=== PATIENT | female | born 1945 | race Caucasian/White ===

== ENCOUNTER → 2023-01-17 | Outpatient (REF) | payer MEDICARE, SELFPAY ==
[2023-01-17 08:27] LABS: Hematocrit 42.3 % (37-47); Hemoglobin 13.2 g/dL (12.0-15.0); Mean Corp Hgb Conc 31.2 g/dL (32-36); Mean Corpuscular Hgb 28.7 pg (27.0-32.0); Mean Platelet Vol. 11.3 fl (6.2-12.0); Platelet Count 242 K/mm3 (150-450); RBC Distribution Width CV 14.1 % (11.6-14.6); RBC Distribution Width SD 47.7 fl (35.1-43.9); White Blood Count 7.2 K/mm3 (4.4-11.0)
[2023-01-17 08:49] LABS: ALB/GLOB Ratio 0.7 RATIO (0.9-2.4); AST(SGOT) 21 U/L (15-37); Alanine Aminotransfer ALT/SGPT 24 U/L (13-56); Albumin, Serum 2.9 g/dL (3.2-5.0); Alkaline Phosphatase 62 U/L (45-117); Anion Gap 3 (5-15); BUN 9 mg/dL (7-18); BUN/Creat Ratio 13.2 RATIO (10-20); Calcium,Total 8.7 mg/dL (8.5-10.1); Chloride 107 mmol/L (98-107); Creatinine, Serum 0.68 mg/dL (0.55-1.02); EST Glomerular Filtration Rate 90 mL/min (>60); Est Glom Filt Rate - Afr Amer 108 mL/min (>60); Globulin 3.9 g/dL (2.2-4.2); Glucose 98 mg/dL (74-106); Potassium 3.9 mmol/L (3.5-5.1); Protein, Total 6.8 g/dL (6.4-8.2); Sodium Level 138 mmol/L (136-145); Thyroid Stim Hormone (TSH) 2.89 uIU/mL (0.358-3.74)
== END | disposition home or self-care (01) ==
LOC: OLS.SANC 06:50
PROVIDERS: Visit Provider Internal Medicine
DX: I10 Essential (primary) hypertension (principal); K57.90 Diverticulosis of intestine, part unspecified, without perforation or abscess without bleeding
CPT/HCPCS: 36415; 80053; 84443; 85027

== ENCOUNTER → 2023-02-14 | Outpatient (REF) | payer MEDICARE, SELFPAY ==
[2023-02-14 09:21] LABS: Hematocrit 39.8 % (37-47); Hemoglobin 12.7 g/dL (12.0-15.0); Mean Corp Hgb Conc 31.9 g/dL (32-36); Mean Corpuscular Hgb 28.9 pg (27.0-32.0); Mean Corpuscular Volume 90.7 fL (81-99); Mean Platelet Vol. 10.9 fl (6.2-12.0); Platelet Count 222 K/mm3 (150-450); RBC Distribution Width CV 13.7 % (11.6-14.6); RBC Distribution Width SD 45.6 fl (35.1-43.9); Red Blood Count 4.39 M/mm3 (4.2-5.4); White Blood Count 7.8 K/mm3 (4.4-11.0)
[2023-02-14 09:27] LABS: Anion Gap 5 (5-15); BUN 11 mg/dL (7-18); BUN/Creat Ratio 18.8 RATIO (10-20); Calcium,Total 8.8 mg/dL (8.5-10.1); Chloride 108 mmol/L (98-107); Creatinine, Serum 0.58 mg/dL (0.55-1.02); EST Glomerular Filtration Rate 107 mL/min (>60); Est Glom Filt Rate - Afr Amer 129 mL/min (>60); Glucose 101 mg/dL (74-106); Sodium Level 142 mmol/L (136-145)
== END ==
LOC: OLS.SANC 05:00
PROVIDERS: Visit Provider Internal Medicine
DX: I10 Essential (primary) hypertension (principal); K57.90 Diverticulosis of intestine, part unspecified, without perforation or abscess without bleeding
CPT/HCPCS: 36415; 80048; 85027

== ENCOUNTER → 2023-05-17 | Outpatient (REF) | payer MEDICARE, SELFPAY ==
[2023-05-17 09:14] LABS: Anion Gap 5 (5-15); BUN 10 mg/dL (7-18); BUN/Creat Ratio 16.1 RATIO (10-20); Calcium,Total 8.6 mg/dL (8.5-10.1); Chloride 107 mmol/L (98-107); Creatinine, Serum 0.62 mg/dL (0.55-1.02); EST Glomerular Filtration Rate 100 mL/min (>60); Est Glom Filt Rate - Afr Amer 121 mL/min (>60); Glucose 107 mg/dL (74-106); Potassium 3.6 mmol/L (3.5-5.1); Sodium Level 141 mmol/L (136-145)
[2023-05-17 09:18] LABS: Hematocrit 37.7 % (37-47); Hemoglobin 12.1 g/dL (12.0-15.0); Mean Corp Hgb Conc 32.1 g/dL (32-36); Mean Corpuscular Hgb 28.7 pg (27.0-32.0); Mean Corpuscular Volume 89.5 fL (81-99); Mean Platelet Vol. 10.7 fl (6.2-12.0); Platelet Count 248 K/mm3 (150-450); RBC Distribution Width SD 45.3 fl (35.1-43.9); Red Blood Count 4.21 M/mm3 (4.2-5.4); White Blood Count 8.1 K/mm3 (4.4-11.0)
== END ==
LOC: OLS.SANC 05:00
PROVIDERS: Referring Provider Internal Medicine; Visit Provider Internal Medicine
DX: I10 Essential (primary) hypertension (principal)
CPT/HCPCS: 36415; 80048; 85027

== ENCOUNTER → 2023-08-12 | Outpatient (REF) | payer MEDICARE, MEDICAID, SELFPAY ==
[2023-08-12 08:01] LABS: Hematocrit 39.2 % (37-47); Hemoglobin 12.4 g/dL (12.0-15.0); Mean Corp Hgb Conc 31.6 g/dL (32-36); Mean Corpuscular Hgb 28.4 pg (27.0-32.0); Mean Corpuscular Volume 89.9 fL (81-99); Mean Platelet Vol. 11.2 fl (6.2-12.0); Platelet Count 234 K/mm3 (150-450); RBC Distribution Width CV 13.8 % (11.6-14.6); RBC Distribution Width SD 45.6 fl (35.1-43.9); Red Blood Count 4.36 M/mm3 (4.2-5.4); White Blood Count 8.7 K/mm3 (4.4-11.0)
[2023-08-12 08:16] LABS: Anion Gap 7 (5-15); BUN 12 mg/dL (7-18); BUN/Creat Ratio 16.8 RATIO (10-20); Calcium,Total 8.6 mg/dL (8.5-10.1); Chloride 106 mmol/L (98-107); Creatinine, Serum 0.71 mg/dL (0.55-1.02); EST Glomerular Filtration Rate 85 mL/min (>60); Est Glom Filt Rate - Afr Amer 102 mL/min (>60); Glucose 109 mg/dL (74-106); Potassium 3.9 mmol/L (3.5-5.1); Sodium Level 141 mmol/L (136-145)
== END ==
LOC: OLS.SANC 05:00
PROVIDERS: Visit Provider Internal Medicine
DX: I10 Essential (primary) hypertension (principal); Z79.899 Other long term (current) drug therapy
CPT/HCPCS: 36415; 80048; 85027

== ENCOUNTER → 2023-11-12 | Outpatient (REF) | payer MEDICARE, MEDICAID, SELFPAY ==
--- OUTSIDE RECORDS SUMMARY | 2023-11-12 05:01 | XMS RPT_ITS | CCD ---
Author Name Unknown Address [address] [place] [address] Organization [facility] Care Team Providers Care Gang Leader Name Role Phone James QUINONES, Cole Burnette Primary Care [facility] er COLE HOPKINS Attending Unavailable COLE HOPKINS Primary Care Unavailable MARIZA PAZ Admitting Unavailable SHERYL LOWE Attending Unavailable COLE HOPKINS Primary Care Unavailable KOBE DAV Admitting Unavailable LUANA ROGERS Consulting Unavailable COLE HOPKINS Primary Care Unavailable GUS LACKEY Attending Unavailable Medications Current Medications Medication Drug Class(es) Dates Sig (Normalized) Sig (Original) miconazole nitrate 0.02 mg/mg topical powder (4 sources) Azole Antifungal Start: 11-12-2022 miconazole (Micotin) 2 % powder Apply topically 2 times daily. 71 g 0 11/12/2022 Active oxybutynin chloride 5 mg oral tablet (2 sources) Cholinergic Muscarinic Antagonist take 1 tablet by mouth once daily in the morning oxybutynin (Ditropan) 5 MG tablet Take 5 mg by mouth every morning. 0 Active Completed/Discontinued Medications Medication Drug Class(es) Dates Sig (Normalized) Sig (Original) Acetaminophen (8 sources) Start: 01-07-2023 End: 01-09-2023 take 1 tablet by mouth every six hours as needed for pain and fever acetaminophen (Tylenol) tablet 650 mg Problems Active Problems Problem Classification Problem Date Documented Da te Episodic/Chronic Cardiac dysrhythmias (2 sources) Unspecified atrial fibrillation; Translations: [Unspecified atrial fibrillation (HCC)] Onset: 10-31-2022 Chronic Other connective tissue disease (2 sources) Recurrent falls ; Translations: [Repeated falls] Episodic Other gastrointestinal disorders (1 source) Diarrhea; Translations: [Diarrhea, unspecified] 12-17-2022 Episodic Other nervous system disorders (2 sources) Difficulty in walking, not elsewhere classified; Translations: [Difficulty in walking, not elsewhere classified] Onset: 10-31-2022 Chronic Past or Other Problems Problem Classification Problem Date Documented Da te Episodic/Chronic E Codes: Fall (10 sources) Fall; Translations: [Unspecified fall, initial encounter] Onset: 10-31-2022 10-31-2022 Episodic Other connective tissue disease (4 sources) Mass of soft tissue; Translations: [Other specified soft tissue disorders] Onset: 06-27-2016 07-06-2022 Episodic Other connective tissue disease (2 sources) Repeated falls; Translations: [Repeated falls] Onset: 01-07-2023 Episodic Residual codes; unclassified (2 sources) Other specified health status; Translations: [Other specified health status] Onset: 10-31-2022 Episodic Urinary tract infections (16 sources) Acute cystitis; Translations: [Acute cystitis with hematuria] Onset: 01-07-2023 Episodic Results Test Name Value Interpretation Reference Range Facil ity Vital Signs Date Time Vital Sign Value Performing Clinician Faci lity 01-08-2023 20:16-0400 Body temperature 97.9 [degF] Serafin Gillespie MD Work Phone: [facility] 01-08-2023 20:16-0400 Diastolic blood pressure 74 mm[Hg] Serafin Gillespie MD Work Phone: [facility] 01-08-2023 20:16-0400 Heart rate 84 /min Serafin Gillespie MD Work Phone: [facility] 01-08-2023 20:16-0400 Respiratory rate 12 /min Serafin Gillespie MD Work Phone: [facility] 01-08-2023 20:16-0400 SaO2% (BldA) [Mass fraction] 94 % Serafin Gillespie MD Work Phone: [facility] 01-08-2023 20:16-0400 Systolic blood pressure 146 mm[Hg] Serafin Gillespie MD Work Phone: [facility] 01-07-2023 21:02-0400 Body height 162.6 cm Serafin Gillespie MD Work Phone: [facility] 01-07-2023 21:02-0400 Body mass index (BMI) [Ratio] 38.62 kg/m2 Serafin Gillespie MD Work Phone: [facility] 01-07-2023 21:02-0400 Body weight 102.06 kg Serafin Gillespie MD Work Phone: [facility] Encounters Encounter Date Encounter Type Care Provider Facility Start: 01-07-2023 End: 01-09-2023 Evaluation and management of inpatient [facility] Start: 01-07-2023 End: 01-09-2023 Evaluation and management of inpatient Serafin Gillespie MD Work Phone: [facility] Procedures Date Procedure Procedure Detail Performing Clinician Start: 01-09-2023 SARS-CoV-2 (COVID-19 ) Ag [Presence] in Respiratory specimen by Rapid immunoassay Sheryl Lowe GRAPPLE YARDER OPERATOR - WATER POLLUTION SCIENTIST Work Phone: Start: 01-09-2023 Basic metabolic pane l calcium total Sheryl Lowe GRAPPLE YARDER OPERATOR - WATER POLLUTION SCIENTIST Work Phone: Start: 01-08-2023 Basic metabolic pane l calcium total Ernestina Diamanteaudubonshimon QUINONES Work Phone: Start: 01-07-2023 Urinalysis complete panel - Urine Serafin Gillespie MD Work Phone: Start: 01-07-2023 Urnls dip stick/tabl et reagent auto microscopy Serafin Gillespie MD Work Phone: Start: 01-07-2023 Comprehensive metabo lic panel Serafin Gillespie MD Work Phone: Start: 01-07-2023 Manual differential performed [Presence] in Blood Serafin Gillespie MD Work Phone: Start: 12-17-2022 Iadna-dna/rna gi pth gn multiplex probe tq 12-25 Cole Hopkins MD Work Phone: Plan of Treatment Date Care Activity Detail Author Start: 10-31-2032 DTaP/Tdap/Td Vaccine s (2 - Td or Tdap) DTaP/Tdap/Td Vaccines (2 - Td or Tdap) [facility] Start: 11-02-2023 Diabetes mellitus screening Diabetes Screening [facility] Start: 12-01-2012 Pneumococcal Vaccine : 65+ Years (1 - PCV) Pneumococcal Vaccine: 65+ Years (1 - PCV) [facility] Start: 12-01-1997 Zoster Vaccines (1 of 2) Zoster Vacc eleuterio (1 of 2) [facility] Start: 12-01-1965 Hepatitis C screening Hepatitis C Sc reening [facility] Start: 1959 Depression Screening Depression Scre ening [facility] Start: 06-03-1948 COVID-19 Vaccine (#1) COVID-19 Vacci ne (#1) [facility] Start: 1945 Hepatitis B Vaccines (1 of 3 - 3-dose series) Hepatitis B Vaccines (1 of 3 - 3-dose series) [facility] Start: 1945 Screening for malign ant neoplasm of colon [facility] Start: 1945 Screening for osteoporosis Bone Density Scan [facility] OUTSIDE PROCEDURE SCAN OUTSIDE P ROCEDURE SCAN Procedures Ordered: 12/17/2022 [facility] Immunizations Immunization Date Immunization Notes Care Provider Fa cility 10-31-2022 tetanus toxoid, redu stacy diphtheria toxoid, and acellular pertussis vaccine, adsorbed Serafin Gillespie MD Work Phone: [facility] NEGATED: Highlighted row has not occurred!11-01-2022 Influenza,seasonal,sout chanell Hemisphere,quad,preserv Free Serafin Gillespie MD Work Phone: [facility] Payers Date Payer Category Payer Medicare [employer] [id number] 2021-Present [address] [place] [address] Medicare O [id number] 2021 Medicare [id number] Social History Date Type Detail Facility Tobacco smoking status NHIS Ex-smoker [facility] History of tobacco use Current smoker [facility] History of tobacco use Cigarette Smoker S [facility] Start: 10-31-2022 End: 01-08-2023 Alcohol intake Current non-drinker of alcohol (finding) [facility] Start: 11-01-2022 History SDOH Alcohol Frequency 1 [facility] Start: 11-01-2022 History SDOH Alcohol Std Drinks 0 [facility] Start: 11-01-2022 History SDOH IPV Fear 2 S [facility] Start: 1945 Sex Assigned At Not on file S [facility] Start: 12-28-2022 End: 01-07-2023 Exposure to SARS-CoV-2 (event) Not sure [facility] Start: 10-31-2022 End: 01-08-2023 History of Social function [facility] Start: 10-31-2022 End: 01-08-2023 Humiliation, Afraid, Rape, and Kick questionnaire [HARK] [facility] Within the last year , have you been afraid of your partner or ex-partner? No [facility] How often to you hav e a drink containing alcohol? Never [facility] How many standard dr inks containing alcohol do you have on a typical day? Patient does not drink [facility] Clinical Notes 10-31-2022 to 01-09-2023 Care Coordination - Alyx Schmitz - 01/09/2023 11:19 AM EDTCare Coordination Alyx Schumacherhens - 01/09/2023 11:[address] [facility] - 01/09/2023 11:19 AM EDT Note Date & Type Note Facility 01-09-2023 Note Discharge Summary Gaston Richard : 1945 ADMIT DATE: 01/07/2023 DISCHARGE DATE: 01/09/2023 PRIMARY CARE PHYSICIAN: Cole Hopkins VISIT STATUS: Admission CODE STATUS: Full Code DISCHARGE DIAGNOSES: Principal Problem: UTI (urinary tract infection) Active Problems: Acute cystitis with hematuria Obesity- with likely obesity hypoventilation syndrome HOSPITAL COURSE: Gaston is a 77 y.o. female with past medical history below who presents with chief complaint listed above. She has been having generalized weakness, also slid from the chair, complains of lower extremity edema , she also has urinary symptoms of burning urination chronic urinary incontinence , associated with lower abdominal pressure, came into the ED for evaluation. Denies chest pain, sob, abdominal pain, nausea, vomiting, diarrhea, constipation, fevers, or chills. Work-up in the ED showed normal white count, urinalysis positive for leuk esterase and nitrite along with loaded bacteria, given ceftriaxone and admitted. Patient improved and was seen by PT/OT who recommend inpatient rehab. Patient and her daughter chose a place . Patient will be discharged today to skilled facility. SIGNIFICANT DIAGNOSTIC STUDIES: FER CONSULTANTS: FER RECOMMENDED NEXT STEPS: Patient to be discharged to skilled facility DISCHARGE MEDICATIONS: Medication List CHANGE how you take these medications amLODIPine 10 MG tablet Commonly known as: Norvasc Take 1 tablet (10 mg) by mouth daily. Do not start before November 13, 2022. What changed: when to take this CONTINUE taking these medications escitalopram 20 MG tablet Commonly known as: Lexapro miconazole 2 % powder Commonly known as: Micotin Apply topically 2 times daily. oxybutynin 5 MG tablet Commonly known as: Ditropan Tylenol 8 Hour Arthritis Pain 650 MG ER tablet Generic drug: acetaminophen DIET: Adult diet Regular; Low Sodium (2 gm) ACTIVITY: No restriction. COMPLEXITY OF FOLLOW UP: [x] Moderate Complexity: follow up within 7-14 calendar days (42240) [] Severe Complexity: follow up within 7 calendar days (92234) FOLLOW UP TESTING, PENDING RESULTS OR REFERRALS AT TRANSITIONAL CARE VISIT: [] Yes [x] No PENDING STUDIES: NA DISPOSITION: Skilled Facility FACILITY/HOME CARE AGENCY NAME: [facility] Follow up with No follow-up provider specified. on INSTRUCTIONS TO MA/SW: Please call patient on day after discharge (must document patient contacted within 2 business days of discharge). FOLLOW UP QUESTIONS FOR MA/SW: 1. Did you get medications filled and taking them as instructed from discharge? 2. Are you following your discharge instructions from your hospital stay? 3. Please confirm patient is scheduled for a follow up appointment within the above time frame. DISCHARGE TIME: > 30 minutes SIGNED: SHERYL MYNORMARA Tsang CNP 01/09/2023, 12:15 PM [facility] 01-09-2023 Note Hospitalist Progress Note 01/09/2023 [phone]: Please page me ([phone]) for patient care issues. [phone]: Please page [facility] night Hospitalist for any issues. Subjective: Admit Date: 01/07/2023 PCP: Cole Hopkins MD Room#: B1-155/B1-155 A Interval History: No overnight issues. She states she feels much better today. Patient is aware of the plan to be discharged to SNF. Denies chest pain, sob, abdominal pain, nausea, vomiting, diarrhea, constipation, fevers, or chills. Adult diet Regular; Low Sodium (2 gm) @[id number]@ 24HR INTAKE/OUTPUT: Intake/Output Summary (Last 24 hours) at 01/09/2023 0945 Last data filed at 01/09/2023 0615 Gross per 24 hour Intake -- Output 2900 ml Net -2900 ml Past Medical History: Past Medical History: Diagnosis Date Diverticulitis GERD (gastroesophageal reflux disease) Sleep apnea LABS: CBC: Recent Labs 01/07/238 01/08/23 005 WBC 10.1 8.8 RBC 4.54 4.05 HGB 13.3 11.6* HCT 40.2 35.4 MCV 88.5 87.3 RDW 15.4* 15.5* PLT 251 222 BMP: Recent Labs 01/07/238 01/08/23 0059 NA 138 136 K 3.6 3.5 CL 105 107 CO2 31* 26 BUN 17 16 CREATININE 0.62 0.72 GLUCOSE 152* 108* CALCIUM 9.0 8.0* ANIONGAP 3 3 LIVER PROFILE: Recent Labs 01/07/23757 AST 30 ALT 20 BILITOT 0.5 ALKPHOS 95 PROT 7.8 PT/INR: No results for input(s): PROTIME, INR in the last 72 hours. CARDIAC ENZYMES: No results for input(s): TROPONINI in the last 72 hours. Procalcitonin: No results found for: PROCAL COVID-19 PCR: No results for input(s): COVID19 in the last 72 hours. Objective: Vitals: BP (!) 146/74 (BP Location: Left arm, Patient Position: Lying) Pulse 84 Temp 36.6 ?C (97.9 ?F) (Temporal) Resp 12 Ht 5' 4 (1.626 m) Wt 225 lb (102 kg) SpO2 94% BMI 38.62 kg/m? Pulse Ox: SpO2 Av % Min: 94 % Max: 94 % Supplemental O2: General appearance: pleasant elderly female lying in bed in NAD HEENT: Normal cephalic, atraumatic without obvious deformity. Pupils equal, round, and reactive to light. Extra ocular muscles intact. Conjunctivae/corneas clear. Neck: Supple, with full range of motion. Trachea midline. No lymphadenopathy. Respiratory: Normal respiratory effort at rest . Clear to auscultation, bilaterally without Rales/Wheezes/Rhonchi. Cardiovascular: Regular rate and rhythm with normal S1/S2 without murmurs, rubs or gallops. Abdomen: Soft, non-tender, non-distended with normal bowel sounds. No rebound or guarding. Musculoskeletal: No clubbing, cyanosis or edema bilaterally. Full range of motion without deformity, +2 peripheral pulses in all extremities. Skin: Skin color, texture, turgor normal. No rashes or lesions. Neurologic: Neurovascularly intact without any focal sensory/motor deficits. Cranial nerves: II-XII intact, grossly non-focal. Medications: sodium chloride, 75 mL/hr, Last Rate: 75 mL/hr (01/08/232) amLODIPine, 10 mg, Oral, Daily cefTRIAXone, 1 g, IntraVENous, q24h enoxaparin, 40 mg, SubCUTAneous, Daily escitalopram, 20 mg, Oral, Daily melatonin, 3 mg, Oral, Nightly mirabegron ER, 25 mg, Oral, Daily phenazopyridine, 100 mg, Oral, TID WC Assessment General weakness- PT/OT rec inpatient rehab, patient has auth to go today UTI- culture pending, Rocephin discontinued per abx stewardship KIARA- pap therapy at [facility] - continue PPI Prediabetic - A1c 11/02/22 was 6.0 HTN- sub optimal control , she may need another agent, rec low sodium diet Obesity - BMI>38 Medical Decision Making Discussed patient with infectious disease and she can be off abx after today's dose. Patient improved, primary complaint was weakness, she will be discharged to [facility] today -am labs, replace lytes prn -increase activity -DVT prophylaxis: [] Lovenox [] Heparin [] SCDs [x] Encourage ambulation [] Already on Anticoagulation Anticipated Discharge - Date - 01/09 - Location - Skilled Facility - Pending the following - stable for discharge today Total time spent (which include face to face and non face to face encounters) : 35 minutes Ordering treatments and interventions, ordering and review of laboratory studies, ordering and review of radiographic studies, pulse oximetry, re-evaluation of patient's condition, review of old charts, development of treatment plan with patient or surrogate, discussions with consultants, evaluation of patient's response to treatment and examination of patient Toxic drug monitoring/narrow therapeutic index drug monitoring : # Drug name : # Route administered : # Method of monitoring : Extended Emergency Contact Information Primary Emergency Contact: Kelsey Benitez Mobile Relation: Other Preferred language: [place] [employer] Treating Unit Operator needed? No SHERYL LOWE APRN - WATER POLLUTION SCIENTIST Division of Hospitalist Medicine Inpatient Medical Services/[facility] PAGER: [employer] [facility] 01-09-2023 Note Formatting of this n ote might be different from the original. Discharge med list and MAR information transmitted to [facility] via [facility] per [facility] request. [facility] 01-09-2023 Note Formatting of this n ote might be different from the original. Discharge med list and MAR information transmitted to [facility] via [facility] per [facility] request. [facility] 01-09-2023 Miscellaneous Notes Discharge med list and MAR information transmitted to [facility] via [facility] per [facility] request. Patient Choice Patient Name: GASTON RICHARD Date of : 1945 All Providers Sent Referral Name: [facility] [place] Phone: [phone] Address: [address] [place] [address] Name: [facility] Phone: [phone] Address: [address] [place] [address] Name: [facility] Phone: [phone] Address: [address] [place] [address] Name: Luis Lam Phone: [phone] Address: [address] [place] [address] Spoke with ROSA Fermin NP for discharge. SW arranged transportation, call placed to daughter Kelsey CANTU. OFFICE CHAIR ASSEMBLER tasked to send dc paperwork to [facility]. Facility updated in [facility]. TCC to assist and follow as needed. Notified patient has insurance auth to admit to [facility] by TCC. Transportation arranged through [facility] by cot set for 2 pm. Notified RN and TCC of this via [employer] secure chat. Social work remains available if any other needs or concerns arise. Insurance auth obtained for [facility], Epic chat sent to Sheryl Lowe Np. Confirmed with daughter and NAZ, [facility] is [facility]. [facility] initiated insurance auth 01/08/23. Will wait for auth to be obtained. Pt remains on IV rocephin, TCC to assist and follow as needed. Problem: Pain - Adult Goal: Verbalizes/displays adequate comfort level or baseline comfort level Outcome: Progressing Problem: Safety - Adult Goal: Free from fall injury Outcome: Progressing The patient is Moderately Stable - Low risk of patient condition declining or worsening The patient's goals for the shift include absent of fall The clinical goals for the shift include absent of fall Over the shift, the patient did not make progress toward the following goals. Barriers to progression include none, goals met. Recommendations to address these barriers include none. [facility] able to accept, requested they initiate insurance auth. Sent [facility] notes [facility] per TCC request. Await review and response regarding ability to accept. TCC notified. Spoke with pt at bedside, updated pt I am waiting for a return call from her daughter. Pt states the [facility] is the [facility]. Message sent to [facility] to confirm they can accept. OFFICE CHAIR ASSEMBLER tasked to send therapy notes. TCC to assist and follow as needed. Care Managment Initial Assessment Date: 01/08/2023 Patient Name: Gaston Richard : 1945 Patient Information Source of Information: Patient Cognition/Language: WFL - Within Functional Limits Permission given to speak with patient financial services sales representative/caregiver as indicated: Yes Confirmation of Payer with patient/family: Yes Payer Name: [place]: No Confirmation of Primary Care Physician: Confirmed PCP Name: James Seen in last 2 years?: Yes Primary Caregiver: Other (Comment) (family) If assistance needed, confirmed caregiver ready, willing and able to care for patient at discharge: Yes Confirmed with: per pt, daughter Kelsey Ervin Merrill Living Arrangements Current Residence: House Number of Floors 2 Number of Entry Steps: (lift) Bed/Bath Levels: Both first floor (stays on main floor) Facility: Facility Name: Plan to Return: Lives with: Children, Extended family members (grandchildren) Support Systems: Children, Family members Activities of Daily Living Ambulation: Assistance (walker and wheelchair) Bathing/Dressing: Assistance (aide provides bath on fridays) Elimination/Continence/Toileting: Assistance (incontinent) Feeding: Independent Who Assists with Activities of Daily Living: Instrumental Activities of Daily Living Prescription Coverage: Yes Pharmacy Used: [facility] Medication Management: Prescription pick-up Who assists with medication securing and setup?: daughter Kelsey Transportation/Shopping: Assistance Provider Transportation/Shopping Assistance Provider Name: Kelsey Transportation Mode: Car Needs Assistance with Transportation at Discharge: No Meal Preparation: Assistance Provider Meal Prep Assistance Provider Name: Kelsey Laundry/Cleaning: Assistance Provider Laundry/Cleaning Assistance Provider Name: Kelsey Finances/Bill Paying: Assistance Provider Finances/Bill Payer Assistance Provider Name: Kelsey Communication: Independent Types of Care Services/Equipment Utilized Care Services: Skilled Home Health Services Care Services Provider Name: [facility] Dialysis Type: Durable Medical Equipment: Walker, Wheelchair (standard or power), Shower Seat Patient's Goal/Discharge Plan Patient expects to be discharged to: SNF Discharge Planning Actions: Continue to follow, Assisted Facility referral indicated Kathryn of choice: Kathryn of choice discussed, Choice list provided Patient's Choice Rights and [employer] and Collaborative Relationships Disclosed as Indicated for Post-Acute Care: Yes Interdisciplinary Team Engagement: PT/OT, Home Health Care Social Work Referral for: Additional Information: 77 yo female admitted from fall at home, noted to have a UTI. On IV rocephin and IVF. PT OT ordered. Met with pt at bedside, introduced self and explained role of tcc. Pt has insurance with RX coverage, active with PCP. Pt lives at home with daughter, son in law and their children. Uses a walker and wheelchair, active with [facility]. Referrals were placed yesterday for SNF in the ED. Pt requested I call Kelsey to ask which is FOC, call placed to Kelsey - No answer, left VM. Awaiting PT OT recs. TCC to assist and follow as needed. Evelyn Willson RN S/W, follow up [facility] and [facility], per patient and family wishes. Await facility responses. S/W, ED patient S/W called to ED to speak with patient and family. Family voiced the need for a facility for the patient. Chart reviewed, patient in from home after another fall ( has had several) Patient had been home from [facility] for about one month. Family concerned as they all work and cannot be with the patient 24hrs a day. The patient voiced she does not wish to return to [facility]. The family is working with a rep from [facility], they do have Medicaid paperwork at home to complete. I encouraged them to do so. From here, we will need PT/OT evals to see if we can get patient [place] Medicare to cover SNF time. I did provide the patient with a List of [employer] [facility] SNF ( [facility] [employer] [facility] Patient and family will review and provide choice. documented in this encounter [facility] 01-09-2023 Note Formatting of this n ote might be different from the original. Patient Choice Patient Name: GASTON RICHARD Date of : 1945 All Providers Sent Referral Name: [facility] Phone: [phone] Address: [address] [place] [address] Name: [employer] Phone: [phone] Address: [address] [place] [address] Name: [facility] Phone: [phone] Address: [address] [place] [address] [facility]: [phone] Address: [address] [place] [address] [facility] 01-09-2023 Note Formatting of this n ote might be different from the original. Patient Choice Patient Name: GASTON RICHARD Date of : 1945 All Providers Sent Referral Name: [facility] Phone: [phone] Address: [address] [address] Name: [employer] Phone: [phone] Address: [address] [place] [address] Name: [facility] Phone: [phone] Address: [address] [place] [address] Name: [facility] Phone: [phone] Address: [facility] [place] [address] [facility] 01-09-2023 Note Formatting of this n ote might be different from the original. Spoke with ROSA Fermin NP for discharge. SW arranged transportation, call placed to daughter Kelsey - left . OFFICE CHAIR ASSEMBLER tasked to send dc paperwork to [facility]. Facility updated in careport. TCC to assist and follow as needed. [facility] 01-09-2023 Note Formatting of this n ote might be different from the original. Spoke with ROSA Fermin NP for discharge. SW arranged transportation, call placed to daughter Kelsey - left . OFFICE CHAIR ASSEMBLER tasked to send dc paperwork to [facility]. Facility updated in careport. TCC to assist and follow as needed. [facility] 01-09-2023 Note Formatting of this n ote might be different from the original. Notified patient has insurance auth to admit to [facility] by TCC. Transportation arranged through [facility] by cot set for 2 pm. Notified RN and TCC of this via [employer] chat. Social work remains available if any other needs or concerns arise. [facility] 01-09-2023 Note Formatting of this n ote might be different from the original. Notified patient has insurance auth to admit to [facility] by TCC. Transportation arranged through [facility] by cot set for 2 pm. Notified RN and TCC of this via [employer] chat. Social work remains available if any other needs or concerns arise. [facility] 01-09-2023 Hospital Discharg e instructions Sheeba Rodriguez RN - 01/09/2023 11:06 AM EDT Continuity of Care Form Patient Name: Gaston Richard : 1945 Admit date: 01/07/2023 Discharge date: 01/09/2023 Code Status Order: Full Code Advance Directives: N Admitting Physician: Mariza Paz MD PCP: Cole Hopkins MD Discharging Nurse: Sheeba Discharging Hospital Unit/Room#: B1-155/B1-155 A Discharging Unit Emergency Contact: Extended Emergency Contact Information Primary Emergency Contact: Kelsey Benitez Mobile Relation: Other Preferred language: [place] [employer] Treating Unit Operator needed? No Past Surgical History: Past Surgical History: Procedure Laterality Date CHOLECYSTECTOMY CYST REMOVAL HYSTERECTOMY TONSILLECTOMY (HISTORICAL) Immunization History: Immunization History Administered Date(s) Administered Tdap 10/31/2022 Active Problems: Medical Problems Problem List * (Principal) UTI (urinary tract infection) Fall, initial encounter Fall at home, initial encounter Acute cystitis with hematuria Soft tissue mass Isolation/Infection: No active isolations No active infections Nurse Assessment: Last Vital Signs: BP (!) 146/74 (BP Location: Left arm, Patient Position: Lying) Pulse 84 Temp 36.6 C (97.9 F) (Temporal) Resp 12 Ht 1.626 m (5' 4 ) Wt 102 kg (225 lb) SpO2 94% BMI 38.62 kg/m Last documented pain score (0-10 scale): Last Weight: Wt Readings from Last 1 Encounters: 01/07/23 102 kg (225 lb) Mental Status: KYAW Patient Mental Status: oriented and alert IV Access: KYAW IV Access: None Nursing Mobility/ADLs: Walking Minimal assistance Transfer Total assistance Bathing Total assistance Dressing Total assistance Toileting Total assistance Feeding Independent Jewel Staker Minimal assistance Med Delivery yes Wound Care Documentation and Therapy: Elimination: Continence: Bowel: no Bladder: no Urinary Catheter: None Colostomy/Ileostomy/Ileal Conduit: None Date of Last BM: 01/09/2023 Intake/Output Summary (Last 24 hours) at 01/09/2023 1106 Last data filed at 01/09/2023 0615 Gross per 24 hour Intake -- Output 2900 ml Net -2900 ml I/O last 3 completed shifts: In: 200 (2 mL/kg) [P.O.:200] Out: 3500 (34.3 mL/kg) [Urine:3500 (1 mL/kg/hr)] Weight: 102.1 kg Safety Concerns: history of falls (last 30 days) Impairments/Disabilities: none Nutrition Therapy: Current Nutrition Therapy: Oral diet: low sodium (2gm) Routes of Feeding: oral Liquids: no restrictions Daily Fluid Restriction: no Last Modified Barium Swallow with Video (Video Swallowing Test): not done Treatments at the Time of Hospital Discharge: Respiratory Treatments: n/a Oxygen Therapy: is not on home oxygen therapy. 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 RN SIGNATURE: MANAGEMENT/SOCIAL WORK SECTION Inpatient Status Date: 01/07/23 Readmission Risk Assessment Score: @[email or web address]@ Discharging to Facility/ Agency Name: [facility] Address: [address] [place], [place] [id number] Hours: Open 24 hours Dialysis Facility (if applicable) Name: Address: Dialysis Schedule: Phone: Fax: Customer Support Consultant/Wrecking Mechanic signature: ICIAN SECTION Prognosis: good Condition at Discharge: stable Rehab Potential (if transferring to Rehab): good Recommended Labs or Other Treatments After Discharge: NA Physician Certification: I certify the above information and transfer of Gaston Richard is necessary for the continuing treatment of the diagnosis listed and that she requires long term facility for less than 30 days. Update Admission H&P: No change in H&P PHYSICIAN SIGNATURE: documented in this encounter [facility] 01-09-2023 Note Formatting of this n ote might be different from the original. Insurance auth obtained for [facility] [employer] chat sent to [facility]yl [facility]. [facility] 01-09-2023 Note Formatting of this n ote might be different from the original. Insurance auth obtained for [facility] [place] [employer] chat sent to Sheryl [facility]. [facility] 01-09-2023 History of Presen t illness Narrative Nutrition rescreen completed. Patient assigned a level 1. Images from the original note were not included. Hospitalist Progress Note 01/09/2023 [phone]: Please page me ([phone]) for patient care issues. [phone]: Please page [facility] night Hospitalist for any issues. Subjective: Admit Date: 01/07/2023 PCP: Cole Hopkins MD Room#: B1-155/B1-155 A Interval History: No overnight issues. She states she feels much better today. Patient is aware of the plan to be discharged to SNF. Denies chest pain, sob, abdominal pain, nausea, vomiting, diarrhea, constipation, fevers, or chills. Adult diet Regular; Low Sodium (2 gm) @[id number]@ 24HR INTAKE/OUTPUT: Intake/Output Summary (Last 24 hours) at 01/09/2023 0945 Last data filed at 01/09/2023 0615 Gross per 24 hour Intake -- Output 2900 ml Net -2900 ml Past Medical History: Past Medical History: Diagnosis Date Diverticulitis GERD (gastroesophageal reflux disease) Sleep apnea LABS: CBC: Recent Labs 01/07/238 01/08/2358 WBC 10.1 8.8 RBC 4.54 4.05 HGB 13.3 11.6* HCT 40.2 35.4 MCV 88.5 87.3 RDW 15.4* 15.5* PLT 251 222 BMP: Recent Labs 01/07/2375701/08/2358 NA 138 136 K 3.6 3.5 CL 105 107 CO2 31* 26 BUN 17 16 CREATININE 0.62 0.72 GLUCOSE 152* 108* CALCIUM 9.0 8.0* ANIONGAP 3 3 LIVER PROFILE: Recent Labs 01/07/23757 AST 30 ALT 20 BILITOT 0.5 ALKPHOS 95 PROT 7.8 PT/INR: No results for input(s): PROTIME, INR in the last 72 hours. CARDIAC ENZYMES: No results for input(s): TROPONINI in the last 72 hours. Procalcitonin: No results found for: PROCAL COVID-19 PCR: No results for input(s): COVID19 in the last 72 hours. Objective: Vitals: BP (!) 146/74 (BP Location: Left arm, Patient Position: Lying) Pulse 84 Temp 36.6 C (97.9 F) (Temporal) Resp 12 Ht 5' 4 (1.626 m) Wt 225 lb (102 kg) SpO2 94% BMI 38.62 kg/m Pulse Ox: SpO2 Av % Min: 94 % Max: 94 % Supplemental O2: General appearance: pleasant elderly female lying in bed in [facility] HEENT: Normal cephalic, atraumatic without obvious deformity. Pupils equal, round, and reactive to light. Extra ocular muscles intact. Conjunctivae/corneas clear. Neck: Supple, with full range of motion. Trachea midline. No lymphadenopathy. Respiratory: Normal respiratory effort at rest . Clear to auscultation, bilaterally without Rales/Wheezes/Rhonchi. Cardiovascular: Regular rate and rhythm with normal S1/S2 without murmurs, rubs or gallops. Abdomen: Soft, non-tender, non-distended with normal bowel sounds. No rebound or guarding. Musculoskeletal: No clubbing, cyanosis or edema bilaterally. Full range of motion without deformity, +2 peripheral pulses in all extremities. Skin: Skin color, texture, turgor normal. No rashes or lesions. Neurologic: Neurovascularly intact without any focal sensory/motor deficits. Cranial nerves: II-XII intact, grossly non-focal. Medications: sodium chloride, 75 mL/hr, Last Rate: 75 mL/hr (01/08/232101) amLODIPine, 10 mg, Oral, Daily cefTRIAXone, 1 g, IntraVENous, q24h enoxaparin, 40 mg, SubCUTAneous, Daily escitalopram, 20 mg, Oral, Daily melatonin, 3 mg, Oral, Nightly mirabegron ER, 25 mg, Oral, Daily phenazopyridine, 100 mg, Oral, TID WC Assessment General weakness- PT/OT rec inpatient rehab, patient has auth to go today UTI- culture pending, Rocephin discontinued per abx stewardship KIARA- pap therapy at [facility]ER[facility] - continue PPI Prediabetic - A1c 11/02/22 was 6.0 HTN- sub optimal control , she may need another agent, rec low sodium diet Obesity - BMI>38 Medical Decision Making Discussed patient with infectious disease and she can be off abx after today's dose. Patient improved, primary complaint was weakness, she will be discharged to SNF today -am labs, replace lytes prn -increase activity -DVT prophylaxis: [] Lovenox [] Heparin [] SCDs [x] Encourage ambulation [] Already on Anticoagulation Anticipated Discharge - Date - 01/09 - Location - Skilled Facility - Pending the following - stable for discharge today Total time spent (which include face to face and non face to face encounters) : 35 minutes Ordering treatments and interventions, ordering and review of laboratory studies, ordering and review of radiographic studies, pulse oximetry, re-evaluation of patient's condition, review of old charts, development of treatment plan with patient or surrogate, discussions with consultants, evaluation of patient's response to treatment and examination of patient Toxic drug monitoring/narrow therapeutic index drug monitoring : # Drug name : # Route administered : # Method of monitoring : Extended Emergency Contact Information Primary Emergency Contact: Kelsey Benitez Mobile Relation: Other Preferred language: [place] [employer] Treating Unit Operator needed? No MARA ADAMS CNP Division of Hospitalist Medicine Inpatient Medical Services/[facility] PAGER: Edward chat Occupational Therapy Facility/Department: [address] Occupational Therapy Initial Evaluation NAME: Gaston Richard : 1945 Date of Service: 01/08/2023 Discharge Recommendations: Subacute/Assisted Facility OT Equipment Recommendations Equipment Needed: No (TBD at next level of care) Assessment REQUIRES OT FOLLOW-UP: Yes Performance deficits / Impairments: Decreased functional mobility , Decreased ADL status, Decreased strength, Decreased safe awareness, Decreased endurance, Decreased balance, Decreased posture Assessment: Pt admitting 01/07 with leg swelling and fall, found to have UTI. Pt was previously requiring assist with ADLs and completed functional mobility with fww vs w/c. Pt is currently SBA-max A with ADLs and mod A with transfers. Pt is at increased risk for falls and would benefit from skilled OT services to maximize safety and independence with ADLs and functional mobility. Rec SNF. Prognosis: Fair Decision Making: Medium Complexity History: Pt admitting 01/07 with leg swelling and fall, found to have UTI. Exam: AM-PAC Assistance / Modification: mod A Activity Tolerance Activity Tolerance: Patient limited by fatigue Patient Diagnosis(es): The primary encounter diagnosis was Acute cystitis with hematuria. A diagnosis of Frequent falls was also pertinent to this visit. has a past medical history of Diverticulitis, GERD (gastroesophageal reflux disease), and Sleep apnea. has a past surgical history that includes Hysterectomy; Cyst Removal; Cholecystectomy; and Tonsillectomy. Restrictions Restrictions/Precautions Restrictions/Precautions: General Precautions, Fall Risk Required Braces or Orthoses?: No Vision/Hearing Vision: Within Functional Limits Hearing: Functional/adequate for paticipation in therapy Cognition/Orientation Overall Cognitive Status: WFL Overall Orientation Status: Within Functional Limits Subjective General Chart Reviewed: Yes Patient Assessed for Rehabilitation Services: Yes Family / Caregiver Present: No Subjective Subjective: Pt supine in bed at arrival. Pleasant and agreeable. General Comments Comments: Per RN, pt ok to see. Patient Stated Goal: To get stronger to complete self care tasks more independently Pain Assessment Pain Assessment: No/denies pain Social/Functional History Social/Functional History Lives With: Daughter (NAZ) Type of Home: House Home Layout: Multi-level, Able to Live on Main level with bedroom/bathroom Home Access: Ramped entrance Bathroom Shower/Tub: Tub/Shower unit Bathroom Toilet: Standard Bathroom Equipment: Shower chair, Grab bars in shower Bathroom Accessibility: Walker accessible, Wheelchair accessible Home Equipment: Rolling walker, Wheelchair-manual Receives Help From: Family ADL Assistance: Needs assistance Homemaking Assistance: Needs assistance Ambulation Assistance: Independent With device?: Yes Device: rolling walker Transfer Assistance: Independent Active Supply Chain Intern: No Additional Comments: ambulate FWW vs w/c Objective Gross Assessment: Yes AROM: Generally decreased, functional PROM: Generally decreased, functional Strength: Generally decreased, functional (grossly 4/5) Coordination: Generally decreased, functional Tone: Normal Sensation: Intact (denies numbness and tingling) Observation/Palpation Posture: Fair Observation: no lines/tubes/drains Balance Sitting Balance: Stand by assistance Standing Balance: Moderate assistance Standing Balance Time: ~1 minute total Activity: clothing mgmt, static standing Comment: Pt standing at [facility] with varied min-mod A for standing balance with posterior lean. Pt with increased reliance of BUE support on walker. Functional Mobility Functional Mobility Comments: No true ambulation completed Toilet Transfers Toilet - Technique: Stand step Equipment Used: Extra wide bedside commode Toilet Transfer: Moderate assistance Toilet Transfers Comments: Assist for elevation, balance, controlled descent, and weight shifting, with VCs for safety and sequencing. Pt with general unsteadiness throughout and posterior lean. ADL Feeding: Independent Grooming: Stand by assistance UE Bathing: Stand by assistance LE Bathing: Maximum assistance UE Dressing: Stand by assistance LE Dressing: Maximum assistance Toileting: Maximum assistance Additional Comments: Pt previously required assist with ADLs. Pt is currently SBA with UB ADLs, max A with LB ADLs, and max A with toileting at [facility]. Pt required total assist to don bilateral socks. Pt required assist to thread BLE into briefs. Pt able to partially manage briefs up anteriorly, however requried assist to complete all other aspects. Pt attempting toileting at [facility], however unable to void. Bed mobility Supine to Sit: Maximum assistance Sit to Supine: Moderate assistance Scooting: Maximal assistance Comment: HOB elevated and use of bed rails. Pt requried assist with trunk elevation and BLE mgmt towards EOB with VCs for sequencing. Pt required use of pull pad to scoot towards EOB. Pt denies dizziness with all positional changes. Pt required assist with BLE mgmt to supine. Transfers Sit to stand: Moderate assistance Stand to sit: Moderate assistance Transfer Comments: Pt completing transfer from EOB to fww with asssit for balance, elevation, and controlled descent with VCs for safe hand placement. No true LOB noted. Increased time required to complete. Plan Times per Week: 8 visits Current Treatment Recommendations: Strengthening, Balance Training, Functional Mobility Training, Endurance Training, Pain Management, Safety Education & Training, Patient/Caregiver Education & Training, Equipment Evaluation, Education, & procurement, Self-Care / ADL Plan Comment: POC and goals established in collaboration with the pt. Safety Safety Devices in place: Yes Type of devices: All fall risk precautions in place, Call light within reach, Patient at risk for falls, Left in bed, No alarms engaged upon entry into room, Nurse notified Restraints Initially in place: No AM-PAC Score AM-PAC Inpatient Daily Activity Raw Score: 16 ADL Inpatient CMS G-Code Modifier: CK Goals Encounter Problems Encounter Problems (Active) Balance Patient will tolerate standing with SBA for 3 minutes to allow for increased participation in functional activities Start: 01/08/23 Expected End: 01/18/23 Dressing Upper Extremities Patient will complete upper body dressing mod I Start: 01/08/23 Expected End: 01/18/23 Dressings Lower Extremities Patient will dress lower body with min A Start: 01/08/23 Expected End: 01/18/23 Mobility Patient will demonstrate functional mobility with CGA Start: 01/08/23 Expected End: 01/18/23 Toileting Patient will complete toileting tasks at bedside commode with CGA. Start: 01/08/23 Expected End: 01/18/23 Transfers Patient will complete functional transfer with rolling walker with CGA in order to prepare for ambulation. Start: 01/08/23 Expected End: 01/18/23 Education Education Given To: Patient Education Provided: OT Role, Plan of Care, ADL Adaptive Strategies, Transfer Training, Fall Prevention Strategies, Equipment Education Method: Demonstration, Verbal, Teach Back Barriers to Learning: None Education Outcome: Verbalized understanding, Demonstrated understanding, Continued education needed Therapy Time Individual Co-treatment Time In 1021 Time Out 1045 Minutes 24 Timed Code Treatment Minutes: 10 Minutes (1 ADL) POC supervision transferred to rehab service department occupational therapist. Damaris El OT Physical Therapy Facility/Department: [facility] Physical Therapy Initial Evaluation NAME: Gaston Richard : 1945 Date of Service: 01/08/2023 Discharge Recommendations: Subacute/Assisted Facility PT Equipment Recommendations Other: TND at d/c location Assessment Requires PT Follow-Up: Yes Assessment: Pt presents with noted deficits after admission 01/07 with UTI, fall from recliner, leg swelling. At baseline she is IND with FWW vs w/c, assist for ADLs. She demo bed mobility mod A, transfer to FWW max x1 and unable to ambulate. Pt limited by fatigue, weakness. She is at increased falls risk and unsafe to return home this date, rec SNF Performance Deficits/Impairments: Decreased functional mobility , Decreased safe awareness, Decreased endurance, Decreased balance, Decreased strength Decision Making: Medium Complexity History: UTI Exam: [facility] Clinical Presentation: Pt admitted 01/07 with UTI, swelling, fall from recliner. She has PMH as indicated which contribute to her clinical presentation. She has multiple deficits addressed by PT incluing mobility, strength, endurance, balance, rec SNF. Pt moderate decison making complexity Barriers to Learning: None Barriers to Learning: None Activity Tolerance Activity Tolerance: Patient limited by fatigue, Patient limited by endurance Patient Diagnosis(es): The primary encounter diagnosis was Acute cystitis with hematuria. A diagnosis of Frequent falls was also pertinent to this visit. has a past medical history of Diverticulitis, GERD (gastroesophageal reflux disease), and Sleep apnea. has a past surgical history that includes Hysterectomy; Cyst Removal; Cholecystectomy; and Tonsillectomy. Restrictions Restrictions/Precautions Restrictions/Precautions: General Precautions, Fall Risk Required Braces or Orthoses?: No Vision/Hearing Vision: Within Functional Limits Hearing: Functional/adequate for paticipation in therapy Cognition/Orientation Overall Cognitive Status: WFL Overall Orientation Status: Within Functional Limits Subjective General Chart Reviewed: Yes Patient Assessed for Rehabilitation Services: Yes Additional Pertinent Hx: UTI Family / Caregiver Present: No Follows Commands: Within Functional Limits General Comment Comments: Per RN pt okay for therapy Subjective Subjective: Pt pleasant andaagree to PT Patient Stated Goal: None stated Pain Assessment Pain Assessment: No/denies pain Social/Functional History Social/Functional History Lives With: Daughter (NAZ) Type of Home: House Home Layout: Multi-level, Able to Live on Main level with bedroom/bathroom Home Access: Ramped entrance Bathroom Shower/Tub: Tub/Shower unit Bathroom Toilet: Standard Bathroom Equipment: Shower chair, Grab bars in shower Bathroom Accessibility: Walker accessible, Wheelchair accessible Home Equipment: Rolling walker, Wheelchair-manual Receives Help From: Family ADL Assistance: Needs assistance Homemaking Assistance: Needs assistance Ambulation Assistance: Independent With device?: Yes Device: rolling walker Transfer Assistance: Independent Additional Comments: ambulate FWW vs w/c Objective Observation/Palpation Posture: Fair Observation: no lines/tubes/drains Gross Assessment Gross Assessment: Yes AROM: Generally decreased, functional Strength: Generally decreased, functional Tone: Normal Sensation: Intact Gross Assessment: Yes AROM: Generally decreased, functional Strength: Generally decreased, functional Tone: Normal Sensation: Intact Bed mobility Supine to Sit: Moderate assistance Sit to Supine: Moderate assistance Scooting: Moderate assistance Comment: Pt denies dizziness. She demo supine to sit with mod A to manage BLE and elevate trunk. She sits EOB SBA, require mod A to scoot to EOB. She return to supine with mod A to manage BLE. Transfers Sit to Stand: Maximum Assistance Stand to sit: Maximum Assistance Comment: Pt complete functional transfer to FWW with max x1. Therapist cues pt for hand placement. She demo no LOB but require assiss to correct retro lean, demo decreased eccentric contorl to sit. Therapist cues pt for upright trunk and anterior WS. Pt unable to ambulate, unable to clear BLE Ambulation Ambulation: No Balance Posture: Fair Sitting - Static: Good, - Sitting - Dynamic: Fair, + Standing - Static: Fair, - Plan # of visits: 5 visits Current Treatment Recommendations: Strengthening, Balance Training, Functional Mobility Training, Transfer Training, Endurance Training, Equipment Evaluation, Education, & procurement, Patient/Caregiver Education & Training, Safety Education & Training, Gait Training, Pain Management, Home Exercise Program, Positioning, Wheelchair Mobility Training Plan Comment: goals and treatment plan established in collaboration with pt Safety Safety Devices Safety Devices in Place: Yes Type of Devices: Nurse notified, Patient at risk for falls, All fall risk precautions in place, Call light within reach, Left in bed, Gait belt AM-PAC Score AM-PAC Inpatient Mobility Raw Score: 9 Mobility Inpatient CMS G-Code Modifier: CM Goals Encounter Problems Encounter Problems (Active) Exercise Patient will complete lower extremity exercises for 1-2 sets / 5-10 reps in order to improve strength and activity tolerance for mobility. Start: 01/08/23 Expected End: 01/15/23 Mobility Patient will ambulate 25 feet with min assist and rolling walker in order to improve safety and independence with mobility. Start: 01/08/23 Expected End: 01/15/23 Patient will propel the wheelchair for 100 ft and supervision in order to improve safety and independence with functional mobility. Start: 01/08/23 Expected End: 01/15/23 Transfers Patient will perform bed mobility with min assist in order to improve independence and prepare for out of bed mobility. Start: 01/08/23 Expected End: 01/15/23 Patient will complete sit to stand transfer with min assist to rolling walker in order to improve safety and prepare for out of bed mobility. Start: 01/08/23 Expected End: 01/15/23 Education Education Given To: Patient Education Provided: Goals, Energy Conservation, General Safety, PT Role, Plan of Care, Discharge recommendations, Functional Mobility Training, Equipment, Precautions, Transfer Training, Injury Prevention Education Method: Demonstration, Verbal Barriers to Learning: None Education Outcome: Verbalized understanding, Demonstrated understanding, Continued education needed Therapy Time Individual Co-treatment Time In 0909 Time Out 0925 Minutes 16 Robby Brooks PT Images from the original note were not included. Hospitalist Progress Note 01/08/[phone]: Please page me ([phone]) for patient care issues. [phone]: Please page [facility] Hospitalist for any issues. Subjective: Admit Date: 01/07/2023 PCP: Cole Hopkins MD Room#: B1-155/B1-155 A Interval History: No overnight issues. She is still having dysuria. She states her daughter was looking for an AL place for her. She states she has been unable to walk on her own at home. Denies chest pain, sob, abdominal pain, nausea, vomiting, diarrhea, constipation, fevers, or chills. Adult diet Regular; Low Sodium (2 gm) @[id number]@ 24HR INTAKE/OUTPUT: Intake/Output Summary (Last 24 hours) at 01/08/2023 0933 Last data filed at 01/08/2023 0545 Gross per 24 hour Intake -- Output 800 ml Net -800 ml Past Medical History: Past Medical History: Diagnosis Date Diverticulitis GERD (gastroesophageal reflux disease) Sleep apnea LABS: CBC: Recent Labs 01/07/2375701/08/2358 WBC 10.1 8.8 RBC 4.54 4.05 HGB 13.3 11.6* HCT 40.2 35.4 MCV 88.5 87.3 RDW 15.4* 15.5* PLT 251 222 BMP: Recent Labs 01/07/2375701/08/2358 NA 138 136 K 3.6 3.5 CL 105 107 CO2 31* 26 BUN 17 16 CREATININE 0.62 0.72 GLUCOSE 152* 108* CALCIUM 9.0 8.0* ANIONGAP 3 3 LIVER PROFILE: Recent Labs 01/07/23757 AST 30 ALT 20 BILITOT 0.5 ALKPHOS 95 PROT 7.8 PT/INR: No results for input(s): PROTIME, INR in the last 72 hours. CARDIAC ENZYMES: No results for input(s): TROPONINI in the last 72 hours. Procalcitonin: No results found for: PROCAL COVID-19 PCR: No results for input(s): COVID19 in the last 72 hours. Objective: Vitals: BP (!) 146/73 Pulse 82 Temp 36.7 C (98 F) (Oral) Resp 16 Ht 5' 4 (1.626 m) Wt 225 lb (102 kg) SpO2 94% BMI 38.62 kg/m Pulse Ox: SpO2 Av.4 % Min: 93 % Max: 98 % Supplemental O2: General appearance: obese elderly female lying in bed in [facility] HEENT: Normal cephalic, atraumatic without obvious deformity. Pupils equal, round, and reactive to light. Extra ocular muscles intact. Conjunctivae/corneas clear. Neck: Supple, with full range of motion. Trachea midline. No lymphadenopathy. Respiratory: Normal respiratory effort. Clear to auscultation, bilaterally without Rales/Wheezes/Rhonchi. Cardiovascular: Regular rate and rhythm with normal S1/S2 without murmurs, rubs or gallops. Abdomen: Soft, mildly tender in suprapubic area , non-distended with normal bowel sounds. No rebound or guarding. Musculoskeletal: No clubbing, cyanosis or edema bilaterally. Full range of motion without deformity, +2 peripheral pulses in all extremities. Skin: Skin color, texture, turgor normal. No rashes or lesions. Neurologic: Neurovascularly intact without any focal sensory/motor deficits. Cranial nerves: II-XII intact, grossly non-focal. Medications: sodium chloride, 75 mL/hr, Last Rate: 75 mL/hr (01/08/23 0600) amLODIPine, 10 mg, Oral, Daily cefTRIAXone, 1 g, IntraVENous, q24h enoxaparin, 40 mg, SubCUTAneous, Daily escitalopram, 20 mg, Oral, Daily melatonin, 3 mg, Oral, Nightly mirabegron ER, 25 mg, Oral, Daily Assessment General weakness- PT/OT rec inpatient rehab UTI- culture pending, continue Rocephin , having dysuria ordered pyridium KIARA- pap therapy at GERD - continue PPI Prediabetic - A1c 11/02/22 was 6.0 HTN- sub optimal control Obesity - BMI>38 Medical Decision Making Elderly obese female with weakness found to have UTI, PT/OT continue Rocephin , follow cultures -am labs, replace lytes prn -increase activity -DVT prophylaxis: [] Lovenox [] Heparin [] SCDs [x] Encourage ambulation [] Already on Anticoagulation Anticipated Discharge - Date - 01/10 - Location - Skilled Facility - Pending the following - clinical improvement Total time spent (which include face to face and non face to face encounters) : 35 minutes Ordering treatments and interventions, ordering and review of laboratory studies, ordering and review of radiographic studies, pulse oximetry, re-evaluation of patient's condition, review of old charts, development of treatment plan with patient or surrogate, discussions with consultants, evaluation of patient's response to treatment and examination of patient Toxic drug monitoring/narrow therapeutic index drug monitoring : # Drug name : # Route administered : # Method of monitoring : Extended Emergency Contact Information Primary Emergency Contact: Kelsey Benitez Mobile Relation: Other Preferred language: [place] [employer] Treating Unit Operator needed? No MARA ADAMS CNP Division of Hospitalist Medicine Inpatient Medical Services/[facility] PAGER: Epic chat documented in this encounter [facility] 01-09-2023 Note Formatting of this n ote might be different from the original. Confirmed with daughter and NAZ, [facility] is [facility] [place]. [facility] initiated insurance auth 01/08/23. Will wait for auth to be obtained. Pt remains on IV rocephin, TCC to assist and follow as needed. [facility] 01-09-2023 Note Formatting of this n ote might be different from the original. Confirmed with daughter and NAZ, [facility] is [facility] [place]. [facility] initiated insurance auth 01/08/23. Will wait for auth to be obtained. Pt remains on IV rocephin, TCC to assist and follow as needed. [facility] 01-08-2023 Plan of care note Problem: Pain - Adult Goal: Verbalizes/displays adequate comfort level or baseline comfort level Outcome: Progressing Problem: Safety - Adult Goal: Free from fall injury Outcome: Progressing The patient is Moderately Stable - Low risk of patient condition declining or worsening The patient's goals for the shift include absent of fall The clinical goals for the shift include absent of fall Over the shift, the patient did not make progress toward the following goals. Barriers to progression include none, goals met. Recommendations to address these barriers include none. [facility] 01-08-2023 Note Formatting of this n ote might be different from the original. [facility] able to accept, requested they initiate insurance auth. [facility] 01-08-2023 Note Formatting of this n ote might be different from the original. [facility] able to accept, requested they initiate insurance auth. [facility] 01-08-2023 Note Formatting of this n ote might be different from the original. Sent therapy notes to [facility] via [facility] per TCC request. Await review and response regarding ability to accept. TCC notified. [facility] 01-08-2023 Note Formatting of this n ote might be different from the original. Sent therapy notes to [facility] via [facility] per TCC request. Await review and response regarding ability to accept. TCC notified. T [facility] 01-08-2023 Note Formatting of this n ote might be different from the original. Spoke with pt at bedside, updated pt I am waiting for a return call from her daughter. Pt states the [facility] is the [facility]. Message sent to [facility] to confirm they can accept. OFFICE CHAIR ASSEMBLER tasked to send therapy notes. TCC to assist and follow as needed. [facility] 01-08-2023 Note Formatting of this n ote might be different from the original. Spoke with pt at bedside, updated pt I am waiting for a return call from her daughter. Pt states the [facility] is the [facility]. [facility] OFFICE CHAIR ASSEMBLER tasked to send therapy notes. TCC to assist and follow as needed. [facility] 01-08-2023 Note Hospitalist Progress Note 01/08/2023 [phone]: Please page me ([phone]) for patient care issues. [phone]: Please page [facility] Hospitalist for any issues. Subjective: Admit Date: 01/07/2023 PCP: Cole Hopkins MD Room#: B1-155/B1-155 A Interval History: No overnight issues. She is still having dysuria. She states her daughter was looking for an AL place for her. She states she has been unable to walk on her own at home. Denies chest pain, sob, abdominal pain, nausea, vomiting, diarrhea, constipation, fevers, or chills. Adult diet Regular; Low Sodium (2 gm) @[id number]@ 24HR INTAKE/OUTPUT: Intake/Output Summary (Last 24 hours) at 01/08/2023 0933 Last data filed at 01/08/2023 0545 Gross per 24 hour Intake -- Output 800 ml Net -800 ml Past Medical History: Past Medical History: Diagnosis Date Diverticulitis GERD (gastroesophageal reflux disease) Sleep apnea LABS: CBC: Recent Labs 01/07/23 0758 01/08/23 0059 WBC 10.1 8.8 RBC 4.54 4.05 HGB 13.3 11.6* HCT 40.2 35.4 MCV 88.5 87.3 RDW 15.4* 15.5* PLT 251 222 BMP: Recent Labs 01/07/23 0758 01/08/23 0059 NA 138 136 K 3.6 3.5 CL 105 107 CO2 31* 26 BUN 17 16 CREATININE 0.62 0.72 GLUCOSE 152* 108* CALCIUM 9.0 8.0* ANIONGAP 3 3 LIVER PROFILE: Recent Labs 01/07/23 0758 AST 30 ALT 20 BILITOT 0.5 ALKPHOS 95 PROT 7.8 PT/INR: No results for input(s): PROTIME, INR in the last 72 hours. CARDIAC ENZYMES: No results for input(s): TROPONINI in the last 72 hours. Procalcitonin: No results found for: PROCAL COVID-19 PCR: No results for input(s): COVID19 in the last 72 hours. Objective: Vitals: BP (!) 146/73 Pulse 82 Temp 36.7 ?C (98 ?F) (Oral) Resp 16 Ht 5' 4 (1.626 m) Wt 225 lb (102 kg) SpO2 94% BMI 38.62 kg/m? Pulse Ox: SpO2 Av.4 % Min: 93 % Max: 98 % Supplemental O2: General appearance: obese elderly female lying in bed in [facility] HEENT: Normal cephalic, atraumatic without obvious deformity. Pupils equal, round, and reactive to light. Extra ocular muscles intact. Conjunctivae/corneas clear. Neck: Supple, with full range of motion. Trachea midline. No lymphadenopathy. Respiratory: Normal respiratory effort. Clear to auscultation, bilaterally without Rales/Wheezes/Rhonchi. Cardiovascular: Regular rate and rhythm with normal S1/S2 without murmurs, rubs or gallops. Abdomen: Soft, mildly tender in suprapubic area , non-distended with normal bowel sounds. No rebound or guarding. Musculoskeletal: No clubbing, cyanosis or edema bilaterally. Full range of motion without deformity, +2 peripheral pulses in all extremities. Skin: Skin color, texture, turgor normal. No rashes or lesions. Neurologic: Neurovascularly intact without any focal sensory/motor deficits. Cranial nerves: II-XII intact, grossly non-focal. Medications: sodium chloride, 75 mL/hr, Last Rate: 75 mL/hr (01/08/23 0600) amLODIPine, 10 mg, Oral, Daily cefTRIAXone, 1 g, IntraVENous, q24h enoxaparin, 40 mg, SubCUTAneous, Daily escitalopram, 20 mg, Oral, Daily melatonin, 3 mg, Oral, Nightly mirabegron ER, 25 mg, Oral, Daily Assessment General weakness- PT/OT rec inpatient rehab UTI- culture pending, continue Rocephin , having dysuria ordered pyridium KIARA- pap therapy at HS GERD - continue PPI Prediabetic - A1c 11/02/22 was 6.0 HTN- sub optimal control Obesity - BMI>38 Medical Decision Making Elderly obese female with weakness found to have UTI, PT/OT continue Rocephin , follow cultures -am labs, replace lytes prn -increase activity -DVT prophylaxis: [] Lovenox [] Heparin [] SCDs [x] Encourage ambulation [] Already on Anticoagulation Anticipated Discharge - Date - 01/10 - Location - Skilled Facility - Pending the following - clinical improvement Total time spent (which include face to face and non face to face encounters) : 35 minutes Ordering treatments and interventions, ordering and review of laboratory studies, ordering and review of radiographic studies, pulse oximetry, re-evaluation of patient's condition, review of old charts, development of treatment plan with patient or surrogate, discussions with consultants, evaluation of patient's response to treatment and examination of patient Toxic drug monitoring/narrow therapeutic index drug monitoring : # Drug name : # Route administered : # Method of monitoring : Extended Emergency Contact Information Primary Emergency Contact: DanielaKelsey pierre Mobile Relation: Other Preferred language: [place] [employer] Treating Unit Operator needed? No SHERYL LOWE APRN - JULIENNE Division of Hospitalist Medicine Inpatient Medical Services/[facility] PAGER: [employer] [facility] 01-08-2023 Note Formatting of this n ote might be different from the original. Care Managment Initial Assessment Date: 01/08/2023 Patient Name: Gaston Richard : 1945 Patient Information Source of Information: Patient Cognition/Language: WFL - Within Functional Limits Permission given to speak with patient financial services sales representative/caregiver as indicated: Yes Confirmation of Payer with patient/family: Yes Payer Name: [place] : No Confirmation of Primary Care Physician: Confirmed PCP Name: James Seen in last 2 years?: Yes Primary Caregiver: Other (Comment) (family) If assistance needed, confirmed caregiver ready, willing and able to care for patient at discharge: Yes Confirmed with: per pt, daughter Kelsey and NAZ Merrill Living Arrangements Current Residence: House Number of Floors 2 Number of Entry Steps: (lift) Bed/Bath Levels: Both first floor (stays on main floor) Facility: Facility Name: Plan to Return: Lives with: Children, Extended family members (grandchildren) Support Systems: Children, Family members Activities of Daily Living Ambulation: Assistance (walker and wheelchair) Bathing/Dressing: Assistance (aide provides bath on fridays) Elimination/Continence/Toileting: Assistance (incontinent) Feeding: Independent Who Assists with Activities of Daily Living: Instrumental Activities of Daily Living Prescription Coverage: Yes [facility]acy Used[facility] Medication Management: Prescription pick-up Who assists with medication securing and setup?: daughter Kelsey Transportation/Shopping: Assistance Provider Transportation/Shopping Assistance Provider Name: Kelsey Transportation Mode: Car Needs Assistance with Transportation at Discharge: No Meal Preparation: Assistance Provider Meal Prep Assistance Provider Name: Kelsey Laundry/Cleaning: Assistance Provider Laundry/Cleaning Assistance Provider Name: Kelsey Finances/Bill Paying: Assistance Provider Finances/Bill Payer Assistance Provider Name: Kelsey Communication: Independent Types of Care Services/Equipment Utilized Care Services: Skilled Home Health Services Care Services Provider Name: [facility] Type: Durable Medical Equipment: Walker, Wheelchair (standard or power), Shower Seat Patient's Goal/Discharge Plan Patient expects to be discharged to: SNF Discharge Planning Actions: Continue to follow, Assisted Facility referral indicated Kathryn of choice: Kathryn of choice discussed, Choice list provided Patient's Choice Rights and [employer] and Collaborative Relationships Disclosed as Indicated for Post-Acute Care: Yes Interdisciplinary Team Engagement: PT/OT, Home Health Care Social Work Referral for: Additional Information: 77 yo female admitted from fall at home, noted to have a UTI. On IV rocephin and IVF. PT OT ordered. Met with pt at bedside, introduced self and explained role of tcc. Pt has insurance with RX coverage, active with PCP. Pt lives at home with daughter, son in law and their children. Uses a walker and wheelchair, active with [facility]. Referrals were placed yesterday for SNF in the ED. Pt requested I call Kelsey to ask which is FOC, call placed to Kelsey - No answer, left VM. Awaiting PT OT recs. TCC to assist and follow as needed. Evelyn Willson RN [facility] 01-08-2023 Note Formatting of this n ote might be different from the original. Care Managment Initial Assessment Date: 01/08/2023 Patient Name: Gaston Richard : 1945 Patient Information Source of Information: Patient Cognition/Language: WFL - Within Functional Limits Permission given to speak with patient financial services sales representative/caregiver as indicated: Yes Confirmation of Payer with patient/family: Yes Payer Name: [employer] [place]: No Confirmation of Primary Care Physician: Confirmed PCP Name: James Seen in last 2 years?: Yes Primary Caregiver: Other (Comment) (family) If assistance needed, confirmed caregiver ready, willing and able to care for patient at discharge: Yes Confirmed with: per pt, daughter Kelsey and NAZ Merrill Living Arrangements Current Residence: House Number of Floors 2 Number of Entry Steps: (lift) Bed/Bath Levels: Both first floor (stays on main floor) Facility: Facility Name: Plan to Return: Lives with: Children, Extended family members (grandchildren) Support Systems: Children, Family members Activities of Daily Living Ambulation: Assistance (walker and wheelchair) Bathing/Dressing: Assistance (aide provides bath on fridays) Elimination/Continence/Toileting: Assistance (incontinent) Feeding: Independent Who Assists with Activities of Daily Living: Instrumental Activities of Daily Living Prescription Coverage: Yes [facility] Used[facility] Medication Management: Prescription pick-up Who assists with medication securing and setup?: daughter Kelsey Transportation/Shopping: Assistance Provider Transportation/Shopping Assistance Provider Name: Kelsey Transportation Mode: Car Needs Assistance with Transportation at Discharge: No Meal Preparation: Assistance Provider Meal Prep Assistance Provider Name: Kelsey Laundry/Cleaning: Assistance Provider Laundry/Cleaning Assistance Provider Name: Kelsey Finances/Bill Paying: Assistance Provider Finances/Bill Payer Assistance Provider Name: Kelsey Communication: Independent Types of Care Services/Equipment Utilized Care Services: Skilled Home Health Services Care Services Provider Name: [facility] D[facility] Type: Durable Medical Equipment: Walker, Wheelchair (standard or power), Shower Seat Patient's Goal/Discharge Plan Patient expects to be discharged to: SNF Discharge Planning Actions: Continue to follow, Assisted Facility referral indicated Kathryn of choice: Kathryn of choice discussed, Choice list provided Patient's Choice Rights and [employer] and Collaborative Relationships Disclosed as Indicated for Post-Acute Care: Yes Interdisciplinary Team Engagement: PT/OT, Home Health Care Social Work Referral for: Additional Information: 77 yo female admitted from fall at home, noted to have a UTI. On IV rocephin and IVF. PT OT ordered. Met with pt at bedside, introduced self and explained role of tcc. Pt has insurance with RX coverage, active with PCP. Pt lives at home with daughter, son in law and their children. Uses a walker and wheelchair, active with [facility]. Referrals were placed yesterday for SNF in the ED. Pt requested I call Kelsey to ask which is FOC, call placed to Kelsey - No answer, left VM. Awaiting PT OT recs. TCC to assist and follow as needed. Evelyn Willson RN [facility] 01-07-2023 Emergency department Note Pt taken up to floor by tech at this time Acacia Greer RN 01/07/231916 [facility] 01-07-2023 Emergency department Note Pt taken up to floor by tech at this time Acacia Greer RN 01/07/231916 Pt incont of urine and stool. Pt. Cleaned and provided with clean brief Lights dimmed for pts comfort Acacia Greer RN 01/07/23 7752 EMERGENCY DEPARTMENT ENCOUNTER Pt Name: Gaston Richard Birthdate 1945 Date of evaluation: 01/07/2023 ED Provider: Serafin Gillespie MD CHIEF COMPLAINT Chief Complaint Patient presents with Leg Swelling Pt brought to ED by EMS for fall out of recliner and foot swelling. Pt states her feet have been swollen for 2 days. Pt reports intermittent pain in her foot but denies pain from fall. Pt states she leaned forward and slid out of her recliner when it tipped forward. Pt denies thinners loc cspine tenderness. HISTORY OF PRESENT ILLNESS (Location/Symptom, Timing/Onset, Context/Setting, Quality, Duration, Modifying Factors, Severity) Note limiting factors. I wore appropriate PPE for the entirety of this encounter. JULIO C Richard is a 77 y.o. female who presents to the emergency department with chief complaint of fall. Patient was leaning forward from her recliner to get up when she slipped and landed on the ground. She denies any pain from the fall. Did not hit her head or lose consciousness no neck or back pain or hip or pelvic pain. She states she has had worsening swelling of her bilateral lower extremities and feet for the past several days. She denies history of heart conditions or heart failure. She uses a wheelchair and a rollator to get around. She lives with her son. She denies any fevers chills cough sore throat headache blurry double vision trouble speech confusion chest pain shortness of breath abdominal pain. She states she is incontinent of urine chronically. She thinks she may have a UTI. She denies any dark or bloody stools, states she has been having some loose stools which is not abnormal for her. Denies history of stroke or blood clots. Denies history of known cancer. Nursing Notes were reviewed. Limitations to history: None Outside historians: None REVIEW OF SYSTEMS Review of Systems Constitutional: Positive for activity change. Negative for chills and fever. HENT: Negative for ear pain and sore throat. Eyes: Negative for pain and visual disturbance. Respiratory: Negative for cough and shortness of breath. Cardiovascular: Positive for leg swelling. Negative for chest pain and palpitations. Gastrointestinal: Positive for diarrhea. Negative for abdominal pain and vomiting. Genitourinary: Positive for urgency. Negative for dysuria and hematuria. Musculoskeletal: Negative for arthralgias and back pain. Skin: Negative for color change and rash. Neurological: Negative for dizziness, seizures, syncope and light-headedness. Psychiatric/Behavioral: Negative for confusion. All other systems reviewed and are negative. Pertinent positives and negatives as per HPI. PAST MEDICAL HISTORY Past Medical History: Diagnosis Date Diverticulitis GERD (gastroesophageal reflux disease) Sleep apnea SURGICAL HISTORY Past Surgical History: Procedure Laterality Date CHOLECYSTECTOMY CYST REMOVAL HYSTERECTOMY TONSILLECTOMY (HISTORICAL) CURRENT MEDICATIONS Previous Medications ACETAMINOPHEN (TYLENOL 8 HOUR ARTHRITIS PAIN) 650 MG ER TABLET every 8 hours. AMLODIPINE (NORVASC) 10 MG TABLET Take 1 tablet (10 mg) by mouth daily. Do not start before November 13, 2022. ESCITALOPRAM (LEXAPRO) 20 MG TABLET Every 24 hours. MICONAZOLE (MICOTIN) 2 % POWDER Apply topically 2 times daily. MIRABEGRON ER (MYRBETRIQ) 25 MG 24 HR TABLET Take 25 mg by mouth daily. NAPROXEN SODIUM (ANAPROX) 110 MG SPLIT TABLET Take by mouth. ALLERGIES Patient has no known allergies. FAMILY HISTORY Family History Problem Relation Name Age of Onset Diabetes Mother Cancer Father SOCIAL HISTORY Social History Socioeconomic History Marital status: Tobacco Use Smoking status: Former Packs/day: 0.25 Types: Cigarettes Smokeless tobacco: Never Tobacco comments: Quit smoking: quit x 38 yrs ago Substance and Sexual Activity Alcohol use: No Drug use: No Social Determinants of Health Intimate Partner Violence: Not At Risk Fear of Current or Ex-Partner: No Emotionally Abused: No Physically Abused: No Sexually Abused: No SCREENINGS PHYSICAL EXAM ED Triage Vitals [01/07/23 0729] Temp Heart Rate Resp BP 36.8 C (98.2 F) 89 20 (!) 146/84 SpO2 Temp Source Heart Rate Source Patient Position 97 % Temporal Monitor -- BP Location FiO2 (%) -- -- Physical Exam Vitals and nursing note reviewed. Constitutional: General: She is not in acute distress. Appearance: She is well-developed. She is obese. She is not toxic-appearing or diaphoretic. HENT: Head: Normocephalic and atraumatic. Mouth/Throat: Mouth: Mucous membranes are moist. Pharynx: Oropharynx is clear. Eyes: General: No scleral icterus. Extraocular Movements: Extraocular movements intact. Conjunctiva/sclera: Conjunctivae normal. Pupils: Pupils are equal, round, and reactive to light. Cardiovascular: Rate and Rhythm: Normal rate and regular rhythm. Pulses: Normal pulses. Pulmonary: Effort: Pulmonary effort is normal. No respiratory distress. Breath sounds: Normal breath sounds. Abdominal: General: There is no distension. Palpations: Abdomen is soft. There is no mass. Tenderness: There is no abdominal tenderness. There is no right CVA tenderness, left CVA tenderness, guarding or rebound. Hernia: No hernia is present. Musculoskeletal: General: No swelling. Cervical back: Normal, normal range of motion and neck supple. No rigidity. Thoracic back: Normal. Lumbar back: Normal. Right hip: Normal. Left hip: Normal. Right knee: Normal. Left knee: Normal. Right lower le+ Edema present. Left lower le+ Edema present. Right foot: Swelling present. Left foot: Swelling present. Skin: General: Skin is warm and dry. Capillary Refill: Capillary refill takes less than 2 seconds. Neurological: General: No focal deficit present. Mental Status: She is alert and oriented to person, place, and time. Cranial Nerves: No cranial nerve deficit. Psychiatric: Mood and Affect: Mood normal. Thought Content: Thought content normal. DIAGNOSTIC RESULTS Procedures/EKG: EKG was reviewed by myself. Physician EKG interpretation can be found in [facility] RADIOLOGY (Per Emergency Physician): Interpretation per the Radiologist below, if available at the time of this note: No orders to display ED BEDSIDE ULTRASOUND: Performed by ED Physician - none LABS: Labs Reviewed COMPREHENSIVE METABOLIC PANEL - Abnormal Result Value SODIUM 138 POTASSIUM 3.6 CHLORIDE 105 CARBON DIOXIDE 31 (*) ANION GAP 3 UREA NITROGEN 17 CREATININE 0.62 GLUCOSE 152 (*) CALCIUM 9.0 AST (SGOT) 30 ALT 20 ALKALINE PHOSPHATASE 95 ALBUMIN 4.2 BILIRUBIN, TOTAL 0.5 TOTAL PROTEIN 7.8 eGFR >90.0 CBC WITH AUTO DIFFERENTIAL - Abnormal Auto WBC 10.1 RBC 4.54 Hemoglobin 13.3 Hematocrit 40.2 MCV 88.5 MCH 29.4 MCHC 33.2 RDW 15.4 (*) Platelets 251 MPV 8.5 nRBC 0.0 COMPLETE URINALYSIS - Abnormal Color, Urine Yellow Clarity, Urine Turbid (*) pH, Urine 8.5 (*) Leukocytes, Urine 500 (*) Nitrite, Urine Positive (*) Protein, Urine 100 (*) Glucose, Urine Normal Bilirubin, Urine Negative Ketones, Urine Negative Urobilinogen, Urine 2 (*) Blood, Urine 0.06 (*) RBC, Urine 3-5 (*) WBC, Urine 6-10 (*) Squamous Epithelial, Urine 0-2 Bacteria, Urine Loaded (*) Mucus, Urine Few SPECIFIC GRAVITY OF URINE (NUMERIC) 1.015 MANUAL DIFFERENTIAL - Abnormal Adjusted WBC 10.1 Neutrophils % 84 (*) Bands % 1 (*) Lymphocytes % 10 (*) Atypical Lymphocytes % 1 (*) Monocytes % 4 Absolute Neutrophil Count 8.6 (*) Segs Absolute 8.6 (*) Bands Absolute 0.1 (*) Lymphocytes Absolute 1.0 Atypical Lymphs Absolute 0.1 (*) Monocytes Absolute 0.4 Anisocytosis Slight (*) WBC Morphology Normal PLT Morphology Normal Total Counted 100 Neutrophils Manual 84 Lymphocytes Manual 10 Monocytes Manual 4 Bands Manual 1 Atypical Lymphocytes Manual 1 MAGNESIUM - Normal MAGNESIUM 1.8 NT PRO BNP - Normal NT PRO BNP 142 COMPLETE URINALYSIS WITH REFLEX TO CULTURE Narrative: The following orders were created for panel order Urinalysis complete with reflex to Culture. Procedure Abnormality Status --------- ------ Complete Urinalysis[[id number]] Abnormal Final result Please view results for these tests on the individual orders. All other labs were within normal range or not returned as of this dictation. EMERGENCY DEPARTMENT COURSE and DIFFERENTIAL DIAGNOSIS/MDM: Vitals: Vitals: 01/07/23 0729 BP: (!) 146/84 Pulse: 89 Resp: 20 Temp: 36.8 C (98.2 F) TempSrc: Temporal SpO2: 97% 77-year-old female with history of osteoarthritis of both knees, hypertension, obesity, recent admission after a fall and chronic deconditioning here after another mechanical fall. Complaining of worsening leg swelling and possible UTI. Differential includes UTI, metabolic disturbance, anemia, heart failure. Plan is for CBC CMP BNP magnesium urinalysis and reassessment. Currently vital signs stable. No traumatic injuries noted. No signs of cellulitis. Diagnoses as of 01/07/23 1120 Acute cystitis with hematuria Frequent falls The patient presented with chief complaint of fall. The differential diagnosis associated with this patient's presentation includes as above. Our workup consisted of ordering/reviewing: As above. I also reviewed external records from Inpatient notes discharge summary 11/06/2022 after a fall and deconditioning eventually went to a SNF. Patient is in agreement with this plan. Patient's care was impacted by Hypertension. Medications cefTRIAXone (Rocephin) 1,000 mg in sodium chloride 0.9 % 50 mL IVPB Mini-Bag Plus (has no administration in time range) REVAL: Work-up significant electrolyte imbalance or anemia no leukocytosis evidence for UTI. Family did show up and states she is frequently falling and they would like her to be potentially placed. I spoke with Dr. Paz who will keep for observation. CRITICAL CARE TIME None CONSULTS: IP CONSULT TO SOCIAL WORK PROCEDURES: Unless otherwise noted below, none Procedures Patients symptoms are consistent with sepsis, severe sepsis, or septic shock (If yes use .sepsiscoremeasure ): no FINAL IMPRESSION 1. Acute cystitis with hematuria 2. Frequent falls DISPOSITION Observation 01/07/2023 11:20:36 AM PATIENT REFERRED TO: No follow-up provider specified. DISCHARGE MEDICATIONS: New Prescriptions No medications on file (Comment: Please note this report has been produced using speech recognition software and may contain errors related to that system including errors in grammar, punctuation, and spelling, as well as words and phrases that may be inappropriate. If there are any questions or concerns please feel free to contact the dictating provider for clarification.) Serafin Gillespie MD (electronically signed) Emergency Medicine Provider Serafin Gillespie MD 01/07/23 1121 documented in this encounter [facility] 01-07-2023 Note Attending History an d Physical Admit Date: 01/07/2023 PCP: Cole Hopkins MD CHIEF COMPLAINT: I feel weak and slid Reason for Admission: Generalized weakness admitted with UTI History Obtained From: patient HISTORY OF PRESENT ILLNESS: Gaston is a 77 y.o. female with past medical history below who presents with chief complaint listed above. She has been having generalized weakness, also slid from the chair, complains of lower extremity edema , she also has urinary symptoms of burning urination chronic urinary incontinence , associated with lower abdominal pressure, came into the ED for evaluation. Denies chest pain, sob, abdominal pain, nausea, vomiting, diarrhea, constipation, fevers, or chills. Work-up in the ED showed normal white count, urinalysis positive for leuk esterase and nitrite along with loaded bacteria, given ceftriaxone and admitted. Will admit for further evaluation and management. Past Medical History: Past Medical History: Diagnosis Date Diverticulitis GERD (gastroesophageal reflux disease) Sleep apnea Past Surgical History: Past Surgical History: Procedure Laterality Date CHOLECYSTECTOMY CYST REMOVAL HYSTERECTOMY TONSILLECTOMY (HISTORICAL) Social History: Social History Socioeconomic History Marital status: Spouse name: Not on file Number of children: Not on file Years of education: Not on file Highest education level: Not on file Occupational History Not on file Tobacco Use Smoking status: Former Packs/day: 0.25 Types: Cigarettes Smokeless tobacco: Never Tobacco comments: Quit smoking: quit x 38 yrs ago Substance and Sexual Activity Alcohol use: No Drug use: No Sexual activity: Not on file Other Topics Concern Not on file Social History Narrative Not on file Social Determinants of Health Financial Resource Strain: Not on file Food Insecurity: Not on file Transportation Needs: Not on file Physical Activity: Not on file Stress: Not on file Social Connections: Not on file Intimate Partner Violence: Not At Risk Fear of Current or Ex-Partner: No Emotionally Abused: No Physically Abused: No Sexually Abused: No Housing Stability: Not on file Family History: Family History Problem Relation Name Age of Onset Diabetes Mother Cancer Father Medications Prior to Admission: No current facility-administered medications on file prior to encounter. Current Outpatient Medications on File Prior to Encounter Medication Sig Dispense Refill acetaminophen (Tylenol 8 Hour Arthritis Pain) 650 MG ER tablet every 8 hours. amLODIPine (Norvasc) 10 MG tablet Take 1 tablet (10 mg) by mouth daily. Do not start before November 13, 2022. 30 tablet 0 escitalopram (Lexapro) 20 MG tablet Every 24 hours. miconazole (Micotin) 2 % powder Apply topically 2 times daily. 71 g 0 mirabegron ER (Myrbetriq) 25 MG 24 hr tablet Take 25 mg by mouth daily. naproxen sodium (Anaprox) 110 MG split tablet Take by mouth. Allergies: No Known Allergies REVIEW OF SYSTEMS: Constitutional: Positive for generalized weakness and inability to ambulate. HEENT: Negative for congestion, postnasal drip and sneezing. Eyes: Negative for itching and visual disturbance. Respiratory: Negative for apnea, cough, choking, chest tightness, shortness of breath, wheezing and stridor. Cardiovascular: Negative for chest pain. Gastrointestinal: Negative for nausea, vomiting, positive for lower abdominal , negative for diarrhea and blood in stool. Genitourinary: Positive for dysuria, frequency and flank pain. Musculoskeletal: Negative for myalgias and joint swelling. Skin: Negative for rash. Neurological: Negative for dizziness, tremors, seizures, syncope, facial asymmetry, speech difficulty, weakness, numbness and headaches. Hematological: Negative for adenopathy. Psychiatric/Behavioral: Negative for suicidal ideas, behavioral problems, self-injury and dysphoric mood. Vitals: BP 135/83 Pulse 77 Temp 36.8 ?C (98.2 ?F) (Temporal) Resp 14 SpO2 96% BMI Classification: Normal Weight (BMI 18.5-24.9) Pulse Ox: SpO2 Av.5 % Min: 96 % Max: 97 % Supplemental O2: PHYSICAL EXAM: Physical Exam Constitutional: Appearance: She is obese. She is ill-appearing (appears weak). HENT: Mouth/Throat: Mouth: Mucous membranes are dry. Cardiovascular: Rate and Rhythm: Normal rate and regular rhythm. Heart sounds: S1 normal and S2 normal. Pulmonary: Effort: Pulmonary effort is normal. Breath sounds: Normal breath sounds. Abdominal: General: Bowel sounds are normal. Palpations: Abdomen is soft. Tenderness: There is abdominal tenderness (lower abdomen). Musculoskeletal: Right lower leg: Edema present. Left lower leg: Edema present. Skin: General: Skin is dry. Neurological: General: No focal deficit present. Mental Status: She is oriented to person, place, and time. DATA: CBC: Recent Labs 01/07/23 0758 (more content not included)... [facility] 01-07-2023 Note S/W, follow up [facility]errals [facility] with [facility], [facility] and [facility], per patient and family wishes. Await facility responses. [facility] 01-07-2023 Emergency department Note Pt incont of urine and stool. Pt. Cleaned and provided with clean brief Lights dimmed for pts comfort Acacia Greer RN 01/07/23 1544 [facility] 01-07-2023 History and physical note Images from the original note were not included. Attending History and Physical Admit Date: 01/07/2023 PCP: Cole Hopkins MD CHIEF COMPLAINT: I feel weak and slid Reason for Admission: Generalized weakness admitted with UTI History Obtained From: patient HISTORY OF PRESENT ILLNESS: Gaston is a 77 y.o. female with past medical history below who presents with chief complaint listed above. She has been having generalized weakness, also slid from the chair, complains of lower extremity edema , she also has urinary symptoms of burning urination chronic urinary incontinence , associated with lower abdominal pressure, came into the ED for evaluation. Denies chest pain, sob, abdominal pain, nausea, vomiting, diarrhea, constipation, fevers, or chills. Work-up in the ED showed normal white count, urinalysis positive for leuk esterase and nitrite along with loaded bacteria, given ceftriaxone and admitted. Will admit for further evaluation and management. Past Medical History: Past Medical History: Diagnosis Date Diverticulitis GERD (gastroesophageal reflux disease) Sleep apnea Past Surgical History: Past Surgical History: Procedure Laterality Date CHOLECYSTECTOMY CYST REMOVAL HYSTERECTOMY TONSILLECTOMY (HISTORICAL) Social History: Social History Socioeconomic History Marital status: Spouse name: Not on file Number of children: Not on file Years of education: Not on file Highest education level: Not on file Occupational History Not on file Tobacco Use Smoking status: Former Packs/day: 0.25 Types: Cigarettes Smokeless tobacco: Never Tobacco comments: Quit smoking: quit x 38 yrs ago Substance and Sexual Activity Alcohol use: No Drug use: No Sexual activity: Not on file Other Topics Concern Not on file Social History Narrative Not on file Social Determinants of Health Financial Resource Strain: Not on file Food Insecurity: Not on file Transportation Needs: Not on file Physical Activity: Not on file Stress: Not on file Social Connections: Not on file Intimate Partner Violence: Not At Risk Fear of Current or Ex-Partner: No Emotionally Abused: No Physically Abused: No Sexually Abused: No Housing Stability: Not on file Family History: Family History Problem Relation Name Age of Onset Diabetes Mother Cancer Father Medications Prior to Admission: No current facility-administered medications on file prior to encounter. Current Outpatient Medications on File Prior to Encounter Medication Sig Dispense Refill acetaminophen (Tylenol 8 Hour Arthritis Pain) 650 MG ER tablet every 8 hours. amLODIPine (Norvasc) 10 MG tablet Take 1 tablet (10 mg) by mouth daily. Do not start before November 13, 2022. 30 tablet 0 escitalopram (Lexapro) 20 MG tablet Every 24 hours. miconazole (Micotin) 2 % powder Apply topically 2 times daily. 71 g 0 mirabegron ER (Myrbetriq) 25 MG 24 hr tablet Take 25 mg by mouth daily. naproxen sodium (Anaprox) 110 MG split tablet Take by mouth. Allergies: No Known Allergies REVIEW OF SYSTEMS: Constitutional: Positive for generalized weakness and inability to ambulate. HEENT: Negative for congestion, postnasal drip and sneezing. Eyes: Negative for itching and visual disturbance. Respiratory: Negative for apnea, cough, choking, chest tightness, shortness of breath, wheezing and stridor. Cardiovascular: Negative for chest pain. Gastrointestinal: Negative for nausea, vomiting, positive for lower abdominal , negative for diarrhea and blood in stool. Genitourinary: Positive for dysuria, frequency and flank pain. Musculoskeletal: Negative for myalgias and joint swelling. Skin: Negative for rash. Neurological: Negative for dizziness, tremors, seizures, syncope, facial asymmetry, speech difficulty, weakness, numbness and headaches. Hematological: Negative for adenopathy. Psychiatric/Behavioral: Negative for suicidal ideas, behavioral problems, self-injury and dysphoric mood. Vitals: BP 135/83 Pulse 77 Temp 36.8 C (98.2 F) (Temporal) Resp 14 SpO2 96% BMI Classification: Normal Weight (BMI 18.5-24.9) Pulse Ox: SpO2 Av.5 % Min: 96 % Max: 97 % Supplemental O2: PHYSICAL EXAM: Physical Exam Constitutional: Appearance: She is obese. She is ill-appearing (appears weak). HENT: Mouth/Throat: Mouth: Mucous membranes are dry. Cardiovascular: Rate and Rhythm: Normal rate and regular rhythm. Heart sounds: S1 normal and S2 normal. Pulmonary: Effort: Pulmonary effort is normal. Breath sounds: Normal breath sounds. Abdominal: General: Bowel sounds are normal. Palpations: Abdomen is soft. Tenderness: There is abdominal tenderness (lower abdomen). Musculoskeletal: Right lower leg: Edema present. Left lower leg: Edema present. Skin: General: Skin is dry. Neurological: General: No focal deficit present. Mental Status: She is oriented to person, place, and time. DATA: CBC: Recent Labs 01/07/23757 WBC 10.1 RBC 4.54 HGB 13.3 HCT 40.2 MCV 88.5 RDW 15.4* PLT 251 BMP: Recent Labs 01/07/23757 NA 138 K 3.6 CL 105 CO2 31* BUN 17 CREATININE 0.62 GLUCOSE 152* CALCIUM 9.0 ANIONGAP 3 LIVER PROFILE: Recent Labs 01/07/23757 AST 30 ALT 20 BILITOT 0.5 ALKPHOS 95 PROT 7.8 PT/INR: No results for input(s): PROTIME, INR in the last 72 hours. CARDIAC ENZYMES: No results for input(s): TROPONINI in the last 72 hours. Procalcitonin: No results found for: PROCAL Urine Culture: No results found for this or any previous visit. COVID-19 PCR: No results for input(s): COVID19 in the last 72 hours. I reviewed: [x] laboratory results [x] radiographic results At the time of today's encounter. Pt was advised of the results. IMPRESSION: Urinary tract infection Dehydration Generalized weakness and inability to ambulate Dependent edema possibly due to amlodipine-nonpitting Past Medical History: Diagnosis Date Diverticulitis GERD (gastroesophageal reflux disease) Sleep apnea Medical Decision Making: -Place in observation status, IV antibiotics, IV fluids, encourage oral intake Placement when bed available -PT/OT eval/increase activity -am labs, replace lytes prn -vitals per routine -home meds as ordered -DVT prophylaxis: [] Lovenox [] Heparin [] SCDs [x] Encourage ambulation [] Already on Anticoagulation Anticipated Discharge - Date - - Location - - Pending the following - Total time spent (which include face to face and non face to face encounters) : 55 minutes Toxic drug monitoring/narrow therapeutic index drug monitoring : # Drug name : # Route administered : # Method of monitoring : Extended Emergency Contact Information Primary Emergency Contact: DanielagabbyKelsey Mobile Relation: Other Preferred language: [employer] Operator needed? No Code status: Prior -see below for additional orders, further recommendations to follow Orders Placed This Encounter Procedures Urinalysis complete with reflex to Culture Comprehensive metabolic panel CBC auto differential Magnesium Complete Urinalysis NT PRO BNP Adult diet Regular Straight cath if unable to void Inpatient consult to Social Work Initiate observation status Please forward a copy of this H&P to the patient's PCP. Thank you. [facility] 01-07-2023 History and physical note Images from the original note were not included. Attending History and Physical Admit Date: 01/07/2023 PCP: Cole Hopkins MD CHIEF COMPLAINT: I feel weak and slid Reason for Admission: Generalized weakness admitted with UTI History Obtained From: patient HISTORY OF PRESENT ILLNESS: Gaston is a 77 y.o. female with past medical history below who presents with chief complaint listed above. She has been having generalized weakness, also slid from the chair, complains of lower extremity edema , she also has urinary symptoms of burning urination chronic urinary incontinence , associated with lower abdominal pressure, came into the ED for evaluation. Denies chest pain, sob, abdominal pain, nausea, vomiting, diarrhea, constipation, fevers, or chills. Work-up in the ED showed normal white count, urinalysis positive for leuk esterase and nitrite along with loaded bacteria, given ceftriaxone and admitted. Will admit for further evaluation and management. Past Medical History: Past Medical History: Diagnosis Date Diverticulitis GERD (gastroesophageal reflux disease) Sleep apnea Past Surgical History: Past Surgical History: Procedure Laterality Date CHOLECYSTECTOMY CYST REMOVAL HYSTERECTOMY TONSILLECTOMY (HISTORICAL) Social History: Social History Socioeconomic History Marital status: Spouse name: Not on file Number of children: Not on file Years of education: Not on file Highest education level: Not on file Occupational History Not on file Tobacco Use Smoking status: Former Packs/day: 0.25 Types: Cigarettes Smokeless tobacco: Never Tobacco comments: Quit smoking: quit x 38 yrs ago Substance and Sexual Activity Alcohol use: No Drug use: No Sexual activity: Not on file Other Topics Concern Not on file Social History Narrative Not on file Social Determinants of Health Financial Resource Strain: Not on file Food Insecurity: Not on file Transportation Needs: Not on file Physical Activity: Not on file Stress: Not on file Social Connections: Not on file Intimate Partner Violence: Not At Risk Fear of Current or Ex-Partner: No Emotionally Abused: No Physically Abused: No Sexually Abused: No Housing Stability: Not on file Family History: Family History Problem Relation Name Age of Onset Diabetes Mother Cancer Father Medications Prior to Admission: No current facility-administered medications on file prior to encounter. Current Outpatient Medications on File Prior to Encounter Medication Sig Dispense Refill acetaminophen (Tylenol 8 Hour Arthritis Pain) 650 MG ER tablet every 8 hours. amLODIPine (Norvasc) 10 MG tablet Take 1 tablet (10 mg) by mouth daily. Do not start before November 13, 2022. 30 tablet 0 escitalopram (Lexapro) 20 MG tablet Every 24 hours. miconazole (Micotin) 2 % powder Apply topically 2 times daily. 71 g 0 mirabegron ER (Myrbetriq) 25 MG 24 hr tablet Take 25 mg by mouth daily. naproxen sodium (Anaprox) 110 MG split tablet Take by mouth. Allergies: No Known Allergies REVIEW OF SYSTEMS: Constitutional: Positive for generalized weakness and inability to ambulate. HEENT: Negative for congestion, postnasal drip and sneezing. Eyes: Negative for itching and visual disturbance. Respiratory: Negative for apnea, cough, choking, chest tightness, shortness of breath, wheezing and stridor. Cardiovascular: Negative for chest pain. Gastrointestinal: Negative for nausea, vomiting, positive for lower abdominal , negative for diarrhea and blood in stool. Genitourinary: Positive for dysuria, frequency and flank pain. Musculoskeletal: Negative for myalgias and joint swelling. Skin: Negative for rash. Neurological: Negative for dizziness, tremors, seizures, syncope, facial asymmetry, speech difficulty, weakness, numbness and headaches. Hematological: Negative for adenopathy. Psychiatric/Behavioral: Negative for suicidal ideas, behavioral problems, self-injury and dysphoric mood. Vitals: BP 135/83 Pulse 77 Temp 36.8 C (98.2 F) (Temporal) Resp 14 SpO2 96% BMI Classification: Normal Weight (BMI 18.5-24.9) Pulse Ox: SpO2 Av.5 % Min: 96 % Max: 97 % Supplemental O2: PHYSICAL EXAM: Physical Exam Constitutional: Appearance: She is obese. She is ill-appearing (appears weak). HENT: Mouth/Throat: Mouth: Mucous membranes are dry. Cardiovascular: Rate and Rhythm: Normal rate and regular rhythm. Heart sounds: S1 normal and S2 normal. Pulmonary: Effort: Pulmonary effort is normal. Breath sounds: Normal breath sounds. Abdominal: General: Bowel sounds are normal. Palpations: Abdomen is soft. Tenderness: There is abdominal tenderness (lower abdomen). Musculoskeletal: Right lower leg: Edema present. Left lower leg: Edema present. Skin: General: Skin is dry. Neurological: General: No focal deficit present. Mental Status: She is oriented to person, place, and time. DATA: CBC: Recent Labs 01/07/23 0758 WBC 10.1 RBC 4.54 HGB 13.3 HCT 40.2 MCV 88.5 RDW 15.4* PLT 251 BMP: Recent Labs 01/07/23 0758 NA 138 K 3.6 CL 105 CO2 31* BUN 17 CREATININE 0.62 GLUCOSE 152* CALCIUM 9.0 ANIONGAP 3 LIVER PROFILE: Recent Labs 01/07/23 0758 AST 30 ALT 20 BILITOT 0.5 ALKPHOS 95 PROT 7.8 PT/INR: No results for input(s): PROTIME, INR in the last 72 hours. CARDIAC ENZYMES: No results for input(s): TROPONINI in the last 72 hours. Procalcitonin: No results found for: PROCAL Urine Culture: No results found for this or any previous visit. COVID-19 PCR: No results for input(s): COVID19 in the last 72 hours. I reviewed: [x] laboratory results [x] radiographic results At the time of today's encounter. Pt was advised of the results. IMPRESSION: Urinary tract infection Dehydration Generalized weakness and inability to ambulate Dependent edema possibly due to amlodipine-nonpitting Past Medical History: Diagnosis Date Diverticulitis GERD (gastroesophageal reflux disease) Sleep apnea Medical Decision Making: -Place in observation status, IV antibiotics, IV fluids, encourage oral intake Placement when bed available -PT/OT eval/increase activity -am labs, replace lytes prn -vitals per routine -home meds as ordered -DVT prophylaxis: [] Lovenox [] Heparin [] SCDs [x] Encourage ambulation [] Already on Anticoagulation Anticipated Discharge - Date - - Location - - Pending the following - Total time spent (which include face to face and non face to face encounters) : 55 minutes Toxic drug monitoring/narrow therapeutic index drug monitoring : # Drug name : # Route administered : # Method of monitoring : Extended Emergency Contact Information Primary Emergency Contact: Kelsey Benitez Mobile Relation: Other Preferred language: [employer] Operator needed? No Code status: Prior -see below for additional orders, further recommendations to follow Orders Placed This Encounter Procedures Urinalysis complete with reflex to Culture Comprehensive metabolic panel CBC auto differential Magnesium Complete Urinalysis NT PRO BNP Adult diet Regular Straight cath if unable to void Inpatient consult to Social Work Initiate observation status Please forward a copy of this H&P to the patient's PCP. Thank you. documented in this encounter [facility] 01-07-2023 Note Formatting of this n ote might be different from the original. S/W, follow up Referrals placed with [facility], [facility] and [facility], per patient and family wishes. Await facility responses. [facility] 01-07-2023 Note Formatting of this n ote might be different from the original. S/W, follow up Referrals placed with [facility], [facility] and [facility], per patient and family wishes. Await facility responses. [facility] 01-07-2023 Note Formatting of this n ote might be different from the original. S/W, ED patient S/W called to ED to speak with patient and family. Family voiced the need for a facility for the patient. Chart reviewed, patient in from home after another fall ( has had several) Patient had been home from [facility] for about one month. Family concerned as they all work and cannot be with the patient 24hrs a day. The patient voiced she does not wish to return to [facility]. The family is working with a rep from [facility], they do have Medicaid paperwork at home to complete. I encouraged them to do so. From here, we will need PT/OT evals to see if we can get patient [place] [employer] to cover SNF time. I did provide the patient with a List of [place] Medicare SNF ( she is [employer] H[employer] under [place] [employer]) Patient and family will review and provide choice. T [facility] 01-07-2023 Note Formatting of this n ote might be different from the original. S/W, ED patient S/W called to ED to speak with patient and family. Family voiced the need for a facility for the patient. Chart reviewed, patient in from home after another fall ( has had several) Patient had been home from [facility] for about one month. Family concerned as they all work and cannot be with the patient 24hrs a day. The patient voiced she does not wish to return to [facility]. The family is working with a rep from [facility], they do have Medicaid paperwork at home to complete. I encouraged them to do so. From here, we will need PT/OT venkata to see if we can get patient [place] Medicare to cover SNF time. I did provide the patient with a List of [place] Medicare SNF ( she is [employer] H[employer] under [place] Medicare) Patient and family will review and provide choice. T [facility] 01-07-2023 Physician Emergency department Note EMERGENCY DEPARTMENT ENCOUNTER Pt Name: Gsaton Richard Birthdate 1945 Date of evaluation: 01/07/2023 ED Provider: Serafin Gillespie MD CHIEF COMPLAINT Chief Complaint Patient presents with Leg Swelling Pt brought to ED by EMS for fall out of recliner and foot swelling. Pt states her feet have been swollen for 2 days. Pt reports intermittent pain in her foot but denies pain from fall. Pt states she leaned forward and slid out of her recliner when it tipped forward. Pt denies thinners loc cspine tenderness. HISTORY OF PRESENT ILLNESS (Location/Symptom, Timing/Onset, Context/Setting, Quality, Duration, Modifying Factors, Severity) Note limiting factors. I wore appropriate PPE for the entirety of this encounter. HPI Gsaton Richard is a 77 y.o. female who presents to the emergency department with chief complaint of fall. Patient was leaning forward from her recliner to get up when she slipped and landed on the ground. She denies any pain from the fall. Did not hit her head or lose consciousness no neck or back pain or hip or pelvic pain. She states she has had worsening swelling of her bilateral lower extremities and feet for the past several days. She denies history of heart conditions or heart failure. She uses a wheelchair and a rollator to get around. She lives with her son. She denies any fevers chills cough sore throat headache blurry double vision trouble speech confusion chest pain shortness of breath abdominal pain. She states she is incontinent of urine chronically. She thinks she may have a UTI. She denies any dark or bloody stools, states she has been having some loose stools which is not abnormal for her. Denies history of stroke or blood clots. Denies history of known cancer. Nursing Notes were reviewed. Limitations to history: None Outside historians: None REVIEW OF SYSTEMS Review of Systems Constitutional: Positive for activity change. Negative for chills and fever. HENT: Negative for ear pain and sore throat. Eyes: Negative for pain and visual disturbance. Respiratory: Negative for cough and shortness of breath. Cardiovascular: Positive for leg swelling. Negative for chest pain and palpitations. Gastrointestinal: Positive for diarrhea. Negative for abdominal pain and vomiting. Genitourinary: Positive for urgency. Negative for dysuria and hematuria. Musculoskeletal: Negative for arthralgias and back pain. Skin: Negative for color change and rash. Neurological: Negative for dizziness, seizures, syncope and light-headedness. Psychiatric/Behavioral: Negative for confusion. All other systems reviewed and are negative. Pertinent positives and negatives as per HPI. PAST MEDICAL HISTORY Past Medical History: Diagnosis Date Diverticulitis GERD (gastroesophageal reflux disease) Sleep apnea SURGICAL HISTORY Past Surgical History: Procedure Laterality Date CHOLECYSTECTOMY CYST REMOVAL HYSTERECTOMY TONSILLECTOMY (HISTORICAL) CURRENT MEDICATIONS Previous Medications ACETAMINOPHEN (TYLENOL 8 HOUR ARTHRITIS PAIN) 650 MG ER TABLET every 8 hours. AMLODIPINE (NORVASC) 10 MG TABLET Take 1 tablet (10 mg) by mouth daily. Do not start before November 13, 2022. ESCITALOPRAM (LEXAPRO) 20 MG TABLET Every 24 hours. MICONAZOLE (MICOTIN) 2 % POWDER Apply topically 2 times daily. MIRABEGRON ER (MYRBETRIQ) 25 MG 24 HR TABLET Take 25 mg by mouth daily. NAPROXEN SODIUM (ANAPROX) 110 MG SPLIT TABLET Take by mouth. ALLERGIES Patient has no known allergies. FAMILY HISTORY Family History Problem Relation Name Age of Onset Diabetes Mother Cancer Father SOCIAL HISTORY Social History Socioeconomic History Marital status: Tobacco Use Smoking status: Former Packs/day: 0.25 Types: Cigarettes Smokeless tobacco: Never Tobacco comments: Quit smoking: quit x 38 yrs ago Substance and Sexual Activity Alcohol use: No Drug use: No Social Determinants of Health Intimate Partner Violence: Not At Risk Fear of Current or Ex-Partner: No Emotionally Abused: No Physically Abused: No Sexually Abused: No SCREENINGS PHYSICAL EXAM ED Triage Vitals [01/07/23 0729] Temp Heart Rate Resp BP 36.8 C (98.2 F) 89 20 (!) 146/84 SpO2 Temp Source Heart Rate Source Patient Position 97 % Temporal Monitor -- BP Location FiO2 (%) -- -- Physical Exam Vitals and nursing note reviewed. Constitutional: General: She is not in acute distress. Appearance: She is well-developed. She is obese. She is not toxic-appearing or diaphoretic. HENT: Head: Normocephalic and atraumatic. Mouth/Throat: Mouth: Mucous membranes are moist. Pharynx: Oropharynx is clear. Eyes: General: No scleral icterus. Extraocular Movements: Extraocular movements intact. Conjunctiva/sclera: Conjunctivae normal. Pupils: Pupils are equal, round, and reactive to light. Cardiovascular: Rate and Rhythm: Normal rate and regular rhythm. Pulses: Normal pulses. Pulmonary: Effort: Pulmonary effort is normal. No respiratory distress. Breath sounds: Normal breath sounds. Abdominal: General: There is no distension. Palpations: Abdomen is soft. There is no mass. Tenderness: There is no abdominal tenderness. There is no right CVA tenderness, left CVA tenderness, guarding or rebound. Hernia: No hernia is present. Musculoskeletal: General: No swelling. Cervical back: Normal, normal range of motion and neck supple. No rigidity. Thoracic back: Normal. Lumbar back: Normal. Right hip: Normal. Left hip: Normal. Right knee: Normal. Left knee: Normal. Right lower le+ Edema present. Left lower le+ Edema present. Right foot: Swelling present. Left foot: Swelling present. Skin: General: Skin is warm and dry. Capillary Refill: Capillary refill takes less than 2 seconds. Neurological: General: No focal deficit present. Mental Status: She is alert and oriented to person, place, and time. Cranial Nerves: No cranial nerve deficit. Psychiatric: Mood and Affect: Mood normal. Thought Content: Thought content normal. DIAGNOSTIC RESULTS Procedures/EKG: EKG was reviewed by myself. Physician EKG interpretation can be found in [facility] RADIOLOGY (Per Emergency Physician): Interpretation per the Radiologist below, if available at the time of this note: No orders to display ED BEDSIDE ULTRASOUND: Performed by ED Physician - none LABS: Labs Reviewed COMPREHENSIVE METABOLIC PANEL - Abnormal Result Value SODIUM 138 POTASSIUM 3.6 CHLORIDE 105 CARBON DIOXIDE 31 (*) ANION GAP 3 UREA NITROGEN 17 CREATININE 0.62 GLUCOSE 152 (*) CALCIUM 9.0 AST (SGOT) 30 ALT 20 ALKALINE PHOSPHATASE 95 ALBUMIN 4.2 BILIRUBIN, TOTAL 0.5 TOTAL PROTEIN 7.8 eGFR >90.0 CBC WITH AUTO DIFFERENTIAL - Abnormal Auto WBC 10.1 RBC 4.54 Hemoglobin 13.3 Hematocrit 40.2 MCV 88.5 MCH 29.4 MCHC 33.2 RDW 15.4 (*) Platelets 251 MPV 8.5 nRBC 0.0 COMPLETE URINALYSIS - Abnormal Color, Urine Yellow Clarity, Urine Turbid (*) pH, Urine 8.5 (*) Leukocytes, Urine 500 (*) Nitrite, Urine Positive (*) Protein, Urine 100 (*) Glucose, Urine Normal Bilirubin, Urine Negative Ketones, Urine Negative Urobilinogen, Urine 2 (*) Blood, Urine 0.06 (*) RBC, Urine 3-5 (*) WBC, Urine 6-10 (*) Squamous Epithelial, Urine 0-2 Bacteria, Urine Loaded (*) Mucus, Urine Few SPECIFIC GRAVITY OF URINE (NUMERIC) 1.015 MANUAL DIFFERENTIAL - Abnormal Adjusted WBC 10.1 Neutrophils % 84 (*) Bands % 1 (*) Lymphocytes % 10 (*) Atypical Lymphocytes % 1 (*) Monocytes % 4 Absolute Neutrophil Count 8.6 (*) Segs Absolute 8.6 (*) Bands Absolute 0.1 (*) Lymphocytes Absolute 1.0 Atypical Lymphs Absolute 0.1 (*) Monocytes Absolute 0.4 Anisocytosis Slight (*) WBC Morphology Normal PLT Morphology Normal Total Counted 100 Neutrophils Manual 84 Lymphocytes Manual 10 Monocytes Manual 4 Bands Manual 1 Atypical Lymphocytes Manual 1 MAGNESIUM - Normal MAGNESIUM 1.8 NT PRO BNP - Normal NT PRO BNP 142 COMPLETE URINALYSIS WITH REFLEX TO CULTURE Narrative: The following orders were created for panel order Urinalysis complete with reflex to Culture. Procedure Abnormality Status --------- ------ Complete Urinalysis[[id number]] Abnormal Final result Please view results for these tests on the individual orders. All other labs were within normal range or not returned as of this dictation. EMERGENCY DEPARTMENT COURSE and DIFFERENTIAL DIAGNOSIS/MDM: Vitals: Vitals: 01/07/23 0729 BP: (!) 146/84 Pulse: 89 Resp: 20 Temp: 36.8 C (98.2 F) TempSrc: Temporal SpO2: 97% 77-year-old female with history of osteoarthritis of both knees, hypertension, obesity, recent admission after a fall and chronic deconditioning here after another mechanical fall. Complaining of worsening leg swelling and possible UTI. Differential includes UTI, metabolic disturbance, anemia, heart failure. Plan is for CBC CMP BNP magnesium urinalysis and reassessment. Currently vital signs stable. No traumatic injuries noted. No signs of cellulitis. Diagnoses as of 01/07/23 1120 Acute cystitis with hematuria Frequent falls The patient presented with chief complaint of fall. The differential diagnosis associated with this patient's presentation includes as above. Our workup consisted of ordering/reviewing: As above. I also reviewed external records from Inpatient notes discharge summary 11/06/2022 after a fall and deconditioning eventually went to a SNF. Patient is in agreement with this plan. Patient's care was impacted by Hypertension. Medications cefTRIAXone (Rocephin) 1,000 mg in sodium chloride 0.9 % 50 mL IVPB Mini-Bag Plus (has no administration in time range) REVAL: Work-up significant electrolyte imbalance or anemia no leukocytosis evidence for UTI. Family did show up and states she is frequently falling and they would like her to be potentially placed. I spoke with Dr. Paz who will keep for observation. CRITICAL CARE TIME None CONSULTS: IP CONSULT TO SOCIAL WORK PROCEDURES: Unless otherwise noted below, none Procedures Patients symptoms are consistent with sepsis, severe sepsis, or septic shock (If yes use .sepsiscoremeasure ): no FINAL IMPRESSION 1. Acute cystitis with hematuria 2. Frequent falls DISPOSITION Observation 01/07/2023 11:20:36 AM PATIENT REFERRED TO: No follow-up provider specified. DISCHARGE MEDICATIONS: New Prescriptions No medications on file (Comment: Please note this report has been produced using speech recognition software and may contain errors related to that system including errors in grammar, punctuation, and spelling, as well as words and phrases that may be inappropriate. If there are any questions or concerns please feel free to contact the dictating provider for clarification.) Serafin Gillespie MD (electronically signed) Emergency Medicine Provider Serafin Gillespie MD 01/07/23 1121 [facility] 11-12-2022 Note Hospitalist Discharg e Summary Gaston Richard : 1945 Admit date: 10/31/2022 Discharge date: 11/12/2022 Admitting Physician: Dav Hagan MD Primary Care Physician: Cole Hopkins MD Visit Status: inpatient Code Status: Full Code Discharge Diagnoses: Fall with inability to get up Chronic deconditioning OA of knees Mild rhabdomyolysis HTN Obesity BMI of 40 Hypokalemia Hospital Course: patient admitted for fall and weakness at home with inability to get up. Patient found to have mild rhabdomyolysis, renal function and CK level stabilized following IVF. MRI of brain negative for acute pathology. Electrolytes were corrected as indicated. Patient worked with PT/OT, recommended SNF on discharge. Patient discharged to SNF in stable condition on 11/12/22, patient to follow up with PCP outpatient in 1-2 weeks. Patient started on amlodipine 10mg PO every day for elevated BP, will need to follow up with PCP outpatient for further medication adjustments for better BP control. Consults: None Discharge Instructions: Diet: Adult diet Regular Activity: as tolerated Recommended Outpatient Tests: Disposition: Patient discharged in stable condition to SNF Vitals: BP (!) 143/71 Pulse 69 Temp 36.3 ?C (97.4 ?F) (Temporal) Resp 20 Ht 5' 5 (1.651 m) Wt 245 lb (111 kg) SpO2 97% BMI 40.77 kg/m? Pulse Ox: SpO2 Av.7 % Min: 94 % Max: 97 % Supplemental O2: General appearance: No apparent distress, appears stated age and cooperative with exam, obese female in NAD HEENT: Normal cephalic, atraumatic without obvious deformity. Pupils equal, round, and reactive to light. Extra ocular muscles intact. Conjunctivae/corneas clear. Neck: Supple, with full range of motion. No jugular venous distention. Trachea midline. No lymphadenopathy. Respiratory: Normal respiratory effort. Clear to auscultation, bilaterally without Rales/Wheezes/Rhonchi. Cardiovascular: Regular rate and rhythm with normal S1/S2 without murmurs, rubs or gallops. Abdomen: Soft, non-tender, non-distended with normal bowel sounds. No rebound or guarding. Musculoskeletal: No clubbing, cyanosis or edema bilaterally. Full range of motion without deformity. Skin: Skin color, texture, turgor normal. No rashes or lesions. Neurologic: Neurovascularly intact without any focal sensory/motor deficits. Cranial nerves: II-XII intact, grossly non-focal. Discharge Medications: @DISCHARGEAVSMEDLIST@ Recommended Follow-up: PCP outpatient in 1-2 weeks @READMISSIONRISK@ Complexity of Follow up: [] Moderate Complexity: follow up within 7-14 calendar days (19927) [x] Severe Complexity: follow up within 7 calendar days (17175) Follow up Testing, Pending results or Referrals at Transitional Care Visit: [x] yes [] no Instructions to MA: Please call patient on day after discharge (must document patient contacted within 2 business days of discharge). Follow up questions for MA: 1. Did you get medications filled and taking them as instructed from discharge? 2. Are you following your discharge instructions from your hospital stay? 3. Please confirm patient is scheduled for a follow up appointment within the above time frame. Signed: Gus Lackey DO Division of Hospitalist Medicine Inpatient Medical Services/[facility] 11/12/2022, 1:30 PM Total time Spent on Discharge: 31 minutes [facility] 11-11-2022 Note Hospitalist Progress Note 11/11/[id number]: Please page me ([phone]) for patient care issues. [phone]: Please page [facility] night Hospitalist for any issues. Subjective: Admit Date: 10/31/2022 PCP: Cole Hopkins MD Room#: B2-250/B2-250 B Interval History: No overnight issues. Denies chest pain, sob, abdominal pain, nausea, vomiting, constipation, fevers, or chills. Patient reports no issues. She is feeling well. Diarrhea improving. Adult diet Regular @[id number]@ 24HR INTAKE/OUTPUT: No intake or output data in the 24 hours ending 11/11/22 1207 Past Medical History: Past Medical History: Diagnosis Date Diverticulitis GERD (gastroesophageal reflux disease) Sleep apnea LABS: CBC: Recent Labs 11/09/22 0841 11/10/22 0329 11/11/22 0441 WBC 5.3 6.5 3.7 RBC 5.14 4.42 3.32* HGB 14.8 12.8 9.5* HCT 45.2 38.6 29.1* MCV 87.9 87.3 87.5 RDW 14.7* 14.5 14.5 PLT 212 192 162 BMP: Recent Labs 11/09/22 0112 11/10/22 0329 11/11/22 0441 NA 139 138 138 K 3.6 4.0 4.2 CL 108* 110* 108* CO2 27 25 27 BUN 17 19* 15 CREATININE 0.64 0.57 0.54 GLUCOSE 115* 113* 111* CALCIUM 8.3* 8.4 8.5 ANIONGAP 4 3 4 LIVER PROFILE:No results for input(s): AST, ALT, BILITOT, ALKPHOS, PROT in the last 72 hours. No lab exists for component: LABALBU PT/INR: No results for input(s): PROTIME, INR in the last 72 hours. CARDIAC ENZYMES: No results for input(s): TROPONINI in the last 72 hours. Procalcitonin: No results found for: PROCAL COVID-19 PCR: No results for input(s): COVID19 in the last 72 hours. Objective: Vitals: BP (!) 150/86 (BP Location: Right arm, Patient Position: Lying) Pulse 69 Temp 36.1 ?C (96.9 ?F) (Temporal) Resp 18 Ht 5' 5 (1.651 m) Wt 245 lb (111 kg) SpO2 98% BMI 40.77 kg/m? Pulse Ox: SpO2 Av.3 % Min: 93 % Max: 98 % Supplemental O2: General appearance: No apparent distress, appears stated age and cooperative with exam, female laying in bed in NAD. HEENT: Normal cephalic, atraumatic without obvious deformity. Pupils equal, round, and reactive to light. Extra ocular muscles intact. Conjunctivae/corneas clear. Neck: Supple, with full range of motion. No jugular venous distention. Trachea midline. No lymphadenopathy. Respiratory: diminished breath sounds BL. No wheezing present. Cardiovascular: Regular rate and rhythm with normal S1/S2 without murmurs, rubs or gallops. Abdomen: Soft, non-tender, non-distended with normal bowel sounds. No rebound or guarding. Musculoskeletal: No clubbing, cyanosis or . Full range of motion without deformity, +2 peripheral pulses in all extremities. Skin: Skin color, texture, turgor normal. No rashes or lesions.trace BL LE edema, stable. Neurologic: Neurovascularly intact without any focal sensory/motor deficits. Cranial nerves: II-XII intact, grossly non-focal. Medications: amLODIPine, 10 mg, Oral, Daily enoxaparin, 30 mg, SubCUTAneous, 2 times per day escitalopram, 20 mg, Oral, Daily influenza, 0.5 mL, IntraMUSCular, Once miconazole, , Topical, BID potassium chloride CR, 40 mEq, Oral, Daily Assessment Fall and inability to get up Chronic deconditioning MRI of brain negative, PT/OT eval recommending SNF Now off IVF OA of knees Mild rhabdomyolysis, improved, resolution Resolution following IVF Renal function stable HTN Started on Amlodipine 5mg PO every day, today. For better BP control Obesity BMI of 40 Recommended weight loss and increased physical activity Hypokalemia Replaced, follow [facility] Medical Decision Making 11/06/22: patient with deconditioning s/p fall at home. MRI negative. Mild rhabdomyolysis resolved with IVF, renal function stable. Patient started on amlodipine 5mg po every day today for better BP control. Plan for SNF on discharge, continue PT/OT. 11/07/22: patient with deconditioning and fall at home. Pt/OT eval and treat, patient is medically stable for discharge to SNF, [facility], pending insurance auth. Possible discharge in next 24 hours if auth obtained. 11/08/22: CM following, initial SNF selection that was pending auth is not actually in network for patient. Will need to start selection process over per CM. Continue to work with PT/OT. Labs vitals reviewed and stable. Await placement and auth at SNF. 11/09/22: CM following, plan for [facility], auth pending. Imodium for diarrhea ordered. Continue PT/OT. Medically stable for discharge to SNF once auth and bed obtained. 11/10/22: CM following, [facility] is confirmed to be in network for patient's insurance, auth is pending. Medically stable for discharge. Awaiting auth and bed availability. 11/11/22: continue to wait for auth to [facility]. Hopeful for auth tomorrow. Medically stable for discharge. Hopeful for discharge tomorrow. -am labs, replace lytes prn -increase activity -DVT prophylaxis: [x] Lovenox [] Heparin [] SCDs [x] Encourage a (more content not included)... [facility] 11-10-2022 Note Hospitalist Progress Note 11/10/2022 [phone]: Please page me ([phone]) for patient care issues. [phone]: Please page [facility] Hospitalist for any issues. Subjective: Admit Date: 10/31/2022 PCP: Cole Hopkins MD Room#: B2-250/B2-250 B Interval History: No overnight issues. Denies chest pain, sob, abdominal pain, nausea, vomiting, constipation, fevers, or chills. Patient reports no issues. She is feeling well. Still loose stool present, however stable per patient. She has not taken any imodium. Adult diet Regular @[id number]@ 24HR INTAKE/OUTPUT: No intake or output data in the 24 hours ending 11/10/22 1206 Past Medical History: Past Medical History: Diagnosis Date Diverticulitis GERD (gastroesophageal reflux disease) Sleep apnea LABS: CBC: Recent Labs 11/09/22 0841 11/10/22 0329 WBC 5.3 6.5 RBC 5.14 4.42 HGB 14.8 12.8 HCT 45.2 38.6 MCV 87.9 87.3 RDW 14.7* 14.5 PLT 212 192 BMP: Recent Labs 11/08/22 0406 11/09/22 0112 11/10/22 0329 NA 137 139 138 K 4.0 3.6 4.0 CL 107 108* 110* CO2 28 27 25 BUN 12 17 19* CREATININE 0.53 0.64 0.57 GLUCOSE 104* 115* 113* CALCIUM 8.2* 8.3* 8.4 ANIONGAP 3 4 3 LIVER PROFILE:No results for input(s): AST, ALT, BILITOT, ALKPHOS, PROT in the last 72 hours. No lab exists for component: LABALBU PT/INR: No results for input(s): PROTIME, INR in the last 72 hours. CARDIAC ENZYMES: No results for input(s): TROPONINI in the last 72 hours. Procalcitonin: No results found for: PROCAL COVID-19 PCR: No results for input(s): COVID19 in the last 72 hours. Objective: Vitals: BP (!) 177/85 Pulse 66 Temp 36.1 ?C (97 ?F) (Temporal) Resp 14 Ht 5' 5 (1.651 m) Wt 245 lb (111 kg) SpO2 96% BMI 40.77 kg/m? Pulse Ox: SpO2 Av % Min: 94 % Max: 98 % Supplemental O2: General appearance: No apparent distress, appears stated age and cooperative with exam, female sitting up in chair, in NAD. HEENT: Normal cephalic, atraumatic without obvious deformity. Pupils equal, round, and reactive to light. Extra ocular muscles intact. Conjunctivae/corneas clear. Neck: Supple, with full range of motion. No jugular venous distention. Trachea midline. No lymphadenopathy. Respiratory: diminished breath sounds BL. No wheezing present. Cardiovascular: Regular rate and rhythm with normal S1/S2 without murmurs, rubs or gallops. Abdomen: Soft, non-tender, non-distended with normal bowel sounds. No rebound or guarding. Musculoskeletal: No clubbing, cyanosis or . Full range of motion without deformity, +2 peripheral pulses in all extremities. Skin: Skin color, texture, turgor normal. No rashes or lesions.trace BL LE edema Neurologic: Neurovascularly intact without any focal sensory/motor deficits. Cranial nerves: II-XII intact, grossly non-focal. Medications: [START ON 11/11/2022] amLODIPine, 10 mg, Oral, Daily enoxaparin, 30 mg, SubCUTAneous, 2 times per day escitalopram, 20 mg, Oral, Daily influenza, 0.5 mL, IntraMUSCular, Once potassium chloride CR, 40 mEq, Oral, Daily Assessment Fall and inability to get up Chronic deconditioning MRI of brain negative, PT/OT eval recommending SNF Now off IVF OA of knees Mild rhabdomyolysis, improved, resolution Resolution following IVF Renal function stable HTN Started on Amlodipine 5mg PO every day, today. For better BP control Obesity BMI of 40 Recommended weight loss and increased physical activity Hypokalemia Replaced, repeat labs in the AM Medical Decision Making 11/06/22: patient with deconditioning s/p fall at home. MRI negative. Mild rhabdomyolysis resolved with IVF, renal function stable. Patient started on amlodipine 5mg po every day today for better BP control. Plan for SNF on discharge, continue PT/OT. 11/07/22: patient with deconditioning and fall at home. Pt/OT eval and treat, patient is medically stable for discharge to SNF, [facility], pending insurance auth. Possible discharge in next 24 hours if auth obtained. 11/08/22: CM following, initial SNF selection that was pending auth is not actually in network for patient. Will need to start selection process over per CM. Continue to work with PT/OT. Labs vitals reviewed and stable. Await placement and auth at SNF. 11/09/22: CM following, plan for [facility] [place], auth pending. Imodium for diarrhea ordered. Continue PT/OT. Medically stable for discharge to SNF once auth and bed obtained. 11/10/22: CM following, [facility] is confirmed to be in network for patient's insurance, auth is pending. Medically stable for discharge. Awaiting auth and bed availability. -am labs, replace lytes prn -increase activity -DVT prophylaxis: [x] Lovenox [] Heparin [] SCDs [x] Encourage ambulation [] Already on Anticoagulation Anticipated Discharge - Date - 11/12 - Location - Skilled Facility - Pending the following - auth to be obtained, bed availability Toxic drug (more content not included)... [facility] 11-09-2022 Note Hospitalist Progress Note 11/09/[id number]: Please page wa ([phone]) for patient care issues. [phone]: Please page [facility] Hospitalist for any issues. Subjective: Admit Date: 10/31/2022 PCP: Cole Hopkins MD Room#: B2-250/B2250 B Interval History: No overnight issues. Denies chest pain, sob, abdominal pain, nausea, vomiting, constipation, fevers, or chills. Patient reports no issues. She is feeling well. Diarrhea reported today. She had 2 episodes so far today. Adult diet Regular @[id number]@ 24HR INTAKE/OUTPUT: Intake/Output Summary (Last 24 hours) at 11/09/2022 1305 Last data filed at 11/08/2022 1525 Gross per 24 hour Intake -- Output 325 ml Net -325 ml Past Medical History: Past Medical History: Diagnosis Date Diverticulitis GERD (gastroesophageal reflux disease) Sleep apnea LABS: CBC: Recent Labs 11/09/22 0841 WBC 5.3 RBC 5.14 HGB 14.8 HCT 45.2 MCV 87.9 RDW 14.7* PLT 212 BMP: Recent Labs 11/07/22 0110 11/08/22 0406 11/09/22 0112 NA 137 137 139 K 3.7 4.0 3.6 CL 107 107 108* CO2 27 28 27 BUN 14 12 17 CREATININE 0.54 0.53 0.64 GLUCOSE 105* 104* 115* CALCIUM 8.2* 8.2* 8.3* ANIONGAP 3 3 4 LIVER PROFILE:No results for input(s): AST, ALT, BILITOT, ALKPHOS, PROT in the last 72 hours. No lab exists for component: LABALBU PT/INR: No results for input(s): PROTIME, INR in the last 72 hours. CARDIAC ENZYMES: No results for input(s): TROPONINI in the last 72 hours. Procalcitonin: No results found for: PROCAL COVID-19 PCR: No results for input(s): COVID19 in the last 72 hours. Objective: Vitals: BP (!) 142/83 (BP Location: Left arm, Patient Position: Sitting) Pulse 72 Temp 36.1 ?C (96.9 ?F) (Temporal) Resp 16 Ht 5' 5 (1.651 m) Wt 245 lb (111 kg) SpO2 95% BMI 40.77 kg/m? Pulse Ox: SpO2 Av.3 % Min: 93 % Max: 95 % Supplemental O2: General appearance: No apparent distress, appears stated age and cooperative with exam, female sitting up in chair, in NAD. HEENT: Normal cephalic, atraumatic without obvious deformity. Pupils equal, round, and reactive to light. Extra ocular muscles intact. Conjunctivae/corneas clear. Neck: Supple, with full range of motion. No jugular venous distention. Trachea midline. No lymphadenopathy. Respiratory: diminished breath sounds BL. No wheezing present. Cardiovascular: Regular rate and rhythm with normal S1/S2 without murmurs, rubs or gallops. Abdomen: Soft, non-tender, non-distended with normal bowel sounds. No rebound or guarding. Musculoskeletal: No clubbing, cyanosis or . Full range of motion without deformity, +2 peripheral pulses in all extremities. Skin: Skin color, texture, turgor normal. No rashes or lesions.trace BL LE edema Neurologic: Neurovascularly intact without any focal sensory/motor deficits. Cranial nerves: II-XII intact, grossly non-focal. Medications: amLODIPine, 5 mg, Oral, Daily enoxaparin, 30 mg, SubCUTAneous, 2 times per day escitalopram, 20 mg, Oral, Daily influenza, 0.5 mL, IntraMUSCular, Once potassium chloride CR, 40 mEq, Oral, Daily Assessment Fall and inability to get up Chronic deconditioning MRI of brain negative, PT/OT eval recommending SNF Now off IVF OA of knees Mild rhabdomyolysis, improved, resolution Resolution following IVF Renal function stable HTN Started on Amlodipine 5mg PO every day, today. For better BP control Obesity BMI of 40 Recommended weight loss and increased physical activity Hypokalemia Replaced, repeat labs in the AM Medical Decision Making 11/06/22: patient with deconditioning s/p fall at home. MRI negative. Mild rhabdomyolysis resolved with IVF, renal function stable. Patient started on amlodipine 5mg po every day today for better BP control. Plan for SNF on discharge, continue PT/OT. 11/07/22: patient with deconditioning and fall at home. Pt/OT eval and treat, patient is medically stable for discharge to SNF, [facility], pending insurance auth. Possible discharge in next 24 hours if auth obtained. 11/08/22: CM following, initial SNF selection that was pending auth is not actually in network for patient. Will need to start selection process over per CM. Continue to work with PT/OT. Labs vitals reviewed and stable. Await placement and auth at SNF. 11/09/22: CM following, plan for [facility] [place], auth pending. Imodium for diarrhea ordered. Continue PT/OT. Medically stable for discharge to SNF once auth and bed obtained. -am labs, replace lytes prn -increase activity -DVT prophylaxis: [x] Lovenox [] Heparin [] SCDs [x] Encourage ambulation [] Already on Anticoagulation Anticipated Discharge - Date - 11/11? - Location - Skilled Facility - Pending the following - auth to be obtained Toxic drug monitoring/narrow therapeutic index drug monitoring : # Drug name : # Route administered : # Method of monitoring : Extended Emergency Contact Informati (more content not included)... [facility] 11-08-2022 Note [facility] referrals s ent to [facility], [facility] to have them check patients insurance plan and verify if they are in network and could accept. [facility] 11-08-2022 Note Hospitalist Progress Note 11/08/2022 [phone]: Please page me ([phone]) for patient care issues. [phone]: Please page [facility] Hospitalist for any issues. Subjective: Admit Date: 10/31/2022 PCP: Cole Hopkins MD Room#: B2-250/B2-250 B Interval History: No overnight issues. Denies chest pain, sob, abdominal pain, nausea, vomiting, diarrhea, constipation, fevers, or chills. Patient reports no issues. She is feeling well. Adult diet Regular @[id number]@ 24HR INTAKE/OUTPUT: No intake or output data in the 24 hours ending 11/08/22 1331 Past Medical History: Past Medical History: Diagnosis Date Diverticulitis GERD (gastroesophageal reflux disease) Sleep apnea LABS: CBC: Recent Labs 11/06/22 0210 WBC 4.9 RBC 4.67 HGB 13.3 HCT 40.5 MCV 86.7 RDW 14.3 PLT 163 BMP: Recent Labs 11/06/22 0210 11/07/22 0110 11/08/22 0406 NA 137 137 137 K 3.2* 3.7 4.0 CL 106 107 107 CO2 27 27 28 BUN 12 14 12 CREATININE 0.60 0.54 0.53 GLUCOSE 109* 105* 104* CALCIUM 8.2* 8.2* 8.2* ANIONGAP 4 3 3 LIVER PROFILE:No results for input(s): AST, ALT, BILITOT, ALKPHOS, PROT in the last 72 hours. No lab exists for component: LABALBU PT/INR: No results for input(s): PROTIME, INR in the last 72 hours. CARDIAC ENZYMES: No results for input(s): TROPONINI in the last 72 hours. Procalcitonin: No results found for: PROCAL COVID-19 PCR: No results for input(s): COVID19 in the last 72 hours. Objective: Vitals: BP 134/77 (BP Location: Left arm, Patient Position: Lying) Pulse 70 Temp 35.8 ?C (96.4 ?F) (Temporal) Resp 16 Ht 5' 5 (1.651 m) Wt 245 lb (111 kg) SpO2 96% BMI 40.77 kg/m? Pulse Ox: SpO2 Av.7 % Min: 94 % Max: 96 % Supplemental O2: General appearance: No apparent distress, appears stated age and cooperative with exam, female sitting up in bed, in NAD. HEENT: Normal cephalic, atraumatic without obvious deformity. Pupils equal, round, and reactive to light. Extra ocular muscles intact. Conjunctivae/corneas clear. Neck: Supple, with full range of motion. No jugular venous distention. Trachea midline. No lymphadenopathy. Respiratory: diminished breath sounds BL. No wheezing present. Cardiovascular: Regular rate and rhythm with normal S1/S2 without murmurs, rubs or gallops. Abdomen: Soft, non-tender, non-distended with normal bowel sounds. No rebound or guarding. Musculoskeletal: No clubbing, cyanosis or edema bilaterally. Full range of motion without deformity, +2 peripheral pulses in all extremities. Skin: Skin color, texture, turgor normal. No rashes or lesions. Neurologic: Neurovascularly intact without any focal sensory/motor deficits. Cranial nerves: II-XII intact, grossly non-focal. Medications: amLODIPine, 5 mg, Oral, Daily enoxaparin, 30 mg, SubCUTAneous, 2 times per day escitalopram, 20 mg, Oral, Daily influenza, 0.5 mL, IntraMUSCular, Once potassium chloride CR, 40 mEq, Oral, Daily Assessment Fall and inability to get up Chronic deconditioning MRI of brain negative, PT/OT eval recommending SNF Now off IVF OA of knees Mild rhabdomyolysis, improved, resolution Resolution following IVF Renal function stable HTN Started on Amlodipine 5mg PO every day, today. For better BP control Obesity BMI of 40 Recommended weight loss and increased physical activity Hypokalemia Replaced, repeat labs in the AM Medical Decision Making 11/06/22: patient with deconditioning s/p fall at home. MRI negative. Mild rhabdomyolysis resolved with IVF, renal function stable. Patient started on amlodipine 5mg po every day today for better BP control. Plan for SNF on discharge, continue PT/OT. 11/07/22: patient with deconditioning and fall at home. Pt/OT eval and treat, patient is medically stable for discharge to SNF, [facility], pending insurance auth. Possible discharge in next 24 hours if auth obtained. 11/08/22: CM following, initial SNF selection that was pending auth is not actually in network for patient. Will need to start selection process over per CM. Continue to work with PT/OT. Labs vitals reviewed and stable. Await placement and auth at SNF. -am labs, replace lytes prn -increase activity -DVT prophylaxis: [x] Lovenox [] Heparin [] SCDs [x] Encourage ambulation [] Already on Anticoagulation Anticipated Discharge - Date - 11/10? - Location - Skilled Facility - Pending the following - auth to be obtained Toxic drug monitoring/narrow therapeutic index drug monitoring : # Drug name : # Route administered : # Method of monitoring : Extended Emergency Contact Information Primary Emergency Contact: Kelsey Benitez Mobile Relation: Other Preferred language: [place] [employer] Operator needed? No Gus Lackey DO Division of Hospitalist Medicine Inpatient Medical Services/[facility] PAGER: [facility] 11-07-2022 Note Hospitalist Progress Note 11/07/[id number]: Please page wa ([phone]) for patient care issues. [phone]: Please page [facility] night Hospitalist for any issues. Subjective: Admit Date: 10/31/2022 PCP: Cole Hopkins MD Room#: B2-250/B2-250 B Interval History: No overnight issues. Denies chest pain, sob, abdominal pain, nausea, vomiting, diarrhea, constipation, fevers, or chills. Patient reports working with PT/OT. She is feeling well. Adult diet Regular @[id number]@ 24HR INTAKE/OUTPUT: No intake or output data in the 24 hours ending 11/07/22 1315 Past Medical History: Past Medical History: Diagnosis Date Diverticulitis GERD (gastroesophageal reflux disease) Sleep apnea LABS: CBC: Recent Labs 11/06/22 0210 WBC 4.9 RBC 4.67 HGB 13.3 HCT 40.5 MCV 86.7 RDW 14.3 PLT 163 BMP: Recent Labs 11/06/22 0210 11/07/22 0110 NA 137 137 K 3.2* 3.7 CL 106 107 CO2 27 27 BUN 12 14 CREATININE 0.60 0.54 GLUCOSE 109* 105* CALCIUM 8.2* 8.2* ANIONGAP 4 3 LIVER PROFILE:No results for input(s): AST, ALT, BILITOT, ALKPHOS, PROT in the last 72 hours. No lab exists for component: LABALBU PT/INR: No results for input(s): PROTIME, INR in the last 72 hours. CARDIAC ENZYMES: No results for input(s): TROPONINI in the last 72 hours. Procalcitonin: No results found for: PROCAL COVID-19 PCR: No results for input(s): COVID19 in the last 72 hours. Objective: Vitals: BP (!) 149/77 (BP Location: Left arm, Patient Position: Lying) Pulse 74 Temp 36.3 ?C (97.4 ?F) (Temporal) Resp 18 Ht 5' 5 (1.651 m) Wt 245 lb (111 kg) SpO2 93% BMI 40.77 kg/m? Pulse Ox: SpO2 Av.3 % Min: 93 % Max: 96 % Supplemental O2: General appearance: No apparent distress, appears stated age and cooperative with exam, female sitting up in bed, in NAD. HEENT: Normal cephalic, atraumatic without obvious deformity. Pupils equal, round, and reactive to light. Extra ocular muscles intact. Conjunctivae/corneas clear. Neck: Supple, with full range of motion. No jugular venous distention. Trachea midline. No lymphadenopathy. Respiratory: diminished breath sounds BL. Cardiovascular: Regular rate and rhythm with normal S1/S2 without murmurs, rubs or gallops. Abdomen: Soft, non-tender, non-distended with normal bowel sounds. No rebound or guarding. Musculoskeletal: No clubbing, cyanosis or edema bilaterally. Full range of motion without deformity, +2 peripheral pulses in all extremities. Skin: Skin color, texture, turgor normal. No rashes or lesions. Neurologic: Neurovascularly intact without any focal sensory/motor deficits. Cranial nerves: II-XII intact, grossly non-focal. Medications: amLODIPine, 5 mg, Oral, Daily enoxaparin, 30 mg, SubCUTAneous, 2 times per day escitalopram, 20 mg, Oral, Daily influenza, 0.5 mL, IntraMUSCular, Once potassium chloride CR, 40 mEq, Oral, Daily Assessment Fall and inability to get up Chronic deconditioning MRI of brain negative, PT/OT eval recommending SNF Now off IVF OA of knees Mild rhabdomyolysis, improved, resolution Resolution following IVF Renal function stable HTN Started on Amlodipine 5mg PO every day, today. For better BP control Obesity BMI of 40 Recommended weight loss and increased physical activity Hypokalemia Replaced, repeat labs in the AM Medical Decision Making 11/06/22: patient with deconditioning s/p fall at home. MRI negative. Mild rhabdomyolysis resolved with IVF, renal function stable. Patient started on amlodipine 5mg po every day today for better BP control. Plan for SNF on discharge, continue PT/OT. 11/07/22: patient with deconditioning and fall at home. Pt/OT eval and treat, patient is medically stable for discharge to SNF, [facility], pending insurance auth. Possible discharge in next 24 hours if auth obtained. -am labs, replace lytes prn -increase activity -DVT prophylaxis: [x] Lovenox [] Heparin [] SCDs [x] Encourage ambulation [] Already on Anticoagulation Anticipated Discharge - Date - 11/07/22 or 11/08/22 - Location - Skilled Facility - Pending the following - auth to be obtained Toxic drug monitoring/narrow therapeutic index drug monitoring : # Drug name : # Route administered : # Method of monitoring : Extended Emergency Contact Information Primary Emergency Contact: Kelsey Benitez Mobile Relation: Other Preferred language: [place] [employer] Operator needed? No Gsu Lackey DO Division of Hospitalist Medicine Inpatient Medical Services/[facility] PAGER: [facility] 11-06-2022 Note Hospitalist Discharg e Summary Gaston Richard : 1945 Admit date: 10/31/2022 Discharge date: 11/06/2022 Admitting Physician: Dav Hagan MD Primary Care Physician: Cole Hopkins MD Visit Status: inpatient Code Status: Full Code Discharge Diagnoses: Fall and inability to get up Chronic deconditioning OA of keens Mild rhabdomyolysis HTN Obesity BMI of 40 Hypokalemia Hospital Course: patient admitted for fall and weakness at home with inability to get up. Patient found to have mild rhabdomyolysis, renal function and CK level stabilized following IVF. MRI of brain negative for acute pathology. Electrolytes were corrected and supplemented as indicated. Patient worked with PT/OT recommended SNF on discharge. Patient discharged to SNF in stable condition on 11/06/22. Patient to follow up with PCP outpatient in 1-2 weeks. PT started on amlodipine 5mg PO every day for initiation of therapy for elevated BP. Monitor closely outpatient, adjust antihypertensives as indicated. Consults: None Discharge Instructions: Diet: Adult diet Regular Activity: as tolerated Recommended Outpatient Tests: Disposition: Patient discharged in stable condition to SNF Vitals: BP (!) 176/89 (BP Location: Left arm, Patient Position: Lying) Pulse 62 Temp 35.6 ?C (96.1 ?F) (Temporal) Resp 18 Ht 5' 5 (1.651 m) Wt 245 lb (111 kg) SpO2 96% BMI 40.77 kg/m? Pulse Ox: SpO2 Av % Min: 92 % Max: 96 % Supplemental O2: General appearance: No apparent distress, appears stated age and cooperative with exam HEENT: Normal cephalic, atraumatic without obvious deformity. Pupils equal, round, and reactive to light. Extra ocular muscles intact. Conjunctivae/corneas clear. Neck: Supple, with full range of motion. No jugular venous distention. Trachea midline. No lymphadenopathy. Respiratory: Normal respiratory effort. Clear to auscultation, bilaterally without Rales/Wheezes/Rhonchi. Cardiovascular: Regular rate and rhythm with normal S1/S2 without murmurs, rubs or gallops. Abdomen: Soft, non-tender, non-distended with normal bowel sounds. No rebound or guarding. Musculoskeletal: No clubbing, cyanosis or edema bilaterally. Full range of motion without deformity. Skin: Skin color, texture, turgor normal. No rashes or lesions. Neurologic: Neurovascularly intact without any focal sensory/motor deficits. Cranial nerves: II-XII intact, grossly non-focal. Discharge Medications: @DISCHARGEAVSMEDLIST@ Recommended Follow-up: Follow up with PCP outpatient in 1-2 weeks. @READMISSIONRISK@ Complexity of Follow up: [] Moderate Complexity: follow up within 7-14 calendar days (59710) [x] Severe Complexity: follow up within 7 calendar days (27757) Follow up Testing, Pending results or Referrals at Transitional Care Visit: [x] yes [] no Instructions to MA: Please call patient on day after discharge (must document patient contacted within 2 business days of discharge). Follow up questions for MA: 1. Did you get medications filled and taking them as instructed from discharge? 2. Are you following your discharge instructions from your hospital stay? 3. Please confirm patient is scheduled for a follow up appointment within the above time frame. Signed: Gus Lackey DO [facility] Services/[facility] 11/06/2022, 3:03 PM Total time Spent on Discharge: 31 minutes [facility] 11-06-2022 Note Hospitalist Progress Note 11/06/2022 [phone]: Please page me ([phone]) for patient care issues. [phone]: Please page [facility] night Hospitalist for any issues. Subjective: Admit Date: 10/31/2022 PCP: Cole Hopkins MD Room#: B2-250/B2-250 B Interval History: No overnight issues. Denies chest pain, sob, abdominal pain, nausea, vomiting, diarrhea, constipation, fevers, or chills. Patient reports working with PT/OT. Adult diet Regular @[id number]@ 24HR INTAKE/OUTPUT: No intake or output data in the 24 hours ending 11/06/22 1316 Past Medical History: Past Medical History: Diagnosis Date Diverticulitis GERD (gastroesophageal reflux disease) Sleep apnea LABS: CBC: Recent Labs 11/06/22 021 WBC 4.9 RBC 4.67 HGB 13.3 HCT 40.5 MCV 86.7 RDW 14.3 PLT 163 BMP: Recent Labs 11/06/22 0210 NA 137 K 3.2* CL 106 CO2 27 BUN 12 CREATININE 0.60 GLUCOSE 109* CALCIUM 8.2* ANIONGAP 4 LIVER PROFILE:No results for input(s): AST, ALT, BILITOT, ALKPHOS, PROT in the last 72 hours. No lab exists for component: LABALBU PT/INR: No results for input(s): PROTIME, INR in the last 72 hours. CARDIAC ENZYMES: No results for input(s): TROPONINI in the last 72 hours. Procalcitonin: No results found for: PROCAL COVID-19 PCR: No results for input(s): COVID19 in the last 72 hours. Objective: Vitals: BP (!) 176/89 (BP Location: Left arm, Patient Position: Lying) Pulse 62 Temp 35.6 ?C (96.1 ?F) (Temporal) Resp 18 Ht 5' 5 (1.651 m) Wt 245 lb (111 kg) SpO2 96% BMI 40.77 kg/m? Pulse Ox: SpO2 Av % Min: 92 % Max: 96 % Supplemental O2: General appearance: No apparent distress, appears stated age and cooperative with exam HEENT: Normal cephalic, atraumatic without obvious deformity. Pupils equal, round, and reactive to light. Extra ocular muscles intact. Conjunctivae/corneas clear. Neck: Supple, with full range of motion. No jugular venous distention. Trachea midline. No lymphadenopathy. Respiratory: Normal respiratory effort. Clear to auscultation, bilaterally without Rales/Wheezes/Rhonchi. Cardiovascular: Regular rate and rhythm with normal S1/S2 without murmurs, rubs or gallops. Abdomen: Soft, non-tender, non-distended with normal bowel sounds. No rebound or guarding. Musculoskeletal: No clubbing, cyanosis or edema bilaterally. Full range of motion without deformity, +2 peripheral pulses in all extremities. Skin: Skin color, texture, turgor normal. No rashes or lesions. Neurologic: Neurovascularly intact without any focal sensory/motor deficits. Cranial nerves: II-XII intact, grossly non-focal. Medications: enoxaparin, 30 mg, SubCUTAneous, 2 times per day escitalopram, 20 mg, Oral, Daily influenza, 0.5 mL, IntraMUSCular, Once potassium chloride CR, 40 mEq, Oral, Daily Assessment Fall and inability to get up Chronic deconditioning MRI of brain negative, PT/OT eval recommending SNF Stopped on IVF OA of knees Mild rhabdomyolysis, improved, resolution Resolution following IVF Renal function stable HTN Started on Amlodipine 5mg PO every day, today. For better BP control Obesity BMI of 40 Recommended weight loss and increased physical activity Hypokalemia Replaced, repeat labs in the AM Medical Decision Making 11/06/22: patient with deconditioning s/p fall at home. MRI negative. Mild rhabdomyolysis resolved with IVF, renal function stable. Patient started on amlodipine 5mg po every day today for better BP control. Plan for SNF on discharge, continue PT/OT. -am labs, replace lytes prn -increase activity -DVT prophylaxis: [x] Lovenox [] Heparin [] SCDs [x] Encourage ambulation [] Already on Anticoagulation Anticipated Discharge - Date - 11/07/22 - Location - Skilled Facility - Pending the following - auth to be obtained Toxic drug monitoring/narrow therapeutic index drug monitoring : # Drug name : # Route administered : # Method of monitoring : Extended Emergency Contact Information Primary Emergency Contact: Kelsey Benitez Mobile Relation: Other Preferred language: [employer] Operator needed? No Gus Lackey DO Division of Hospitalist Medicine Inpatient Medical Services/[facility] PAGER: Edward kenyon [facility] 11-05-2022 Note Hospitalist Progress Note 11/05/2022 11:21 AM [phone]: Please page me ([phone]) or perfect serve me for patient care issues. [phone]: Please page [facility] night Hospitalist for any issues. Subjective: Admit Date: 10/31/2022 PCP: Cole Hopkins MD Room#: B2-250/B2-250 B Interval History: Seen and examined. No new complaints. Admitting Synopsis: Assessment : Fall and inability to sheba herself up. Mild rhabdomyolysis Debility and weakness. OA knees Difficulty to ambulate Hypokalemia HTN MDM 11/01: Admitted with fall , on the floor of the kitchen overnight. Was able to walk to the restroom this morning. Says she drags her right leg which is new to her. We will get MRI of the brain. CK little bit elevated but stable. Supplement potassium. 11/02: MRI without any acute findings. No new focal neurological deficit or weakness. No new complaints. PT OT suggesting SNF on discharge , discussed about choosing a place. Continue with PT OT. 11/03. Feels better. Knee abrasions better. DC IV fluid. Continue with PT OT. Discharge when placement ready. Blood pressure slightly on the higher side, will monitor for now. If persistently elevated, will start an antihypertensive. 11/05: Waiting for placement. No new complaints. Objective: Vitals: BP (!) 146/79 (BP Location: Left arm, Patient Position: Lying) Pulse 74 Temp 36.9 ?C (98.4 ?F) (Temporal) Resp 16 Ht 5' 5 (1.651 m) Wt 245 lb (111 kg) SpO2 94% BMI 40.77 kg/m? Pulse Ox: SpO2 Av.3 % Min: 92 % Max: 94 % Supplemental O2: CONSTITUTIONAL: awake, HEENT: PERRLA NECK: supple, HEART: regular rate and rhythm , s1,s2,+ LUNGS: bilateral equal air entry, clear to auscultation bilaterally, ABDOMEN: soft, non tender, non distended, positive BS, no guarding or rigidity EXTREMITIES: negative for edema, Adult diet Regular @[id number]@ 24HR INTAKE/OUTPUT: Intake/Output Summary (Last 24 hours) at 11/05/2022 1121 Last data filed at 11/04/2022 2140 Gross per 24 hour Intake 100 ml Output -- Net 100 ml Past Medical History: Past Medical History: Diagnosis Date Diverticulitis GERD (gastroesophageal reflux disease) Sleep apnea Medications: enoxaparin, 30 mg, SubCUTAneous, 2 times per day escitalopram, 20 mg, Oral, Daily influenza, 0.5 mL, IntraMUSCular, Once LABS: CBC: No results for input(s): WBC, RBC, HGB, HCT, MCV, RDW, PLT in the last 72 hours. BMP: No results for input(s): NA, K, CL, CO2, BUN, CREATININE, GLUCOSE, CALCIUM, ANIONGAP in the last 72 hours. LIVER PROFILE: No results for input(s): AST, ALT, BILITOT, ALKPHOS, PROT in the last 72 hours. No lab exists for component: LABALBU PT/INR: No results for input(s): PROTIME, INR in the last 72 hours. CARDIAC ENZYMES: No results for input(s): TROPONINI in the last 72 hours. Procalcitonin: No results found for: PROCAL -am labs, replace lytes prn -increase activity -DVT prophylaxis: [x] Lovenox [] Heparin [] SCDs [] Encourage ambulation [] On Anticoagulation [] OAC/NOAC held [] ASA 325 per primary service Advance Directive: Full Code Extended Emergency Contact Information Primary Emergency Contact: Kelsey Benitez Mobile Relation: Other Preferred language: [employer] Operator needed? No Discharge planning: TBD Dav Hagan MD Division of Hospitalist Medicine [facility] 11-04-2022 Note Hospitalist Progress Note 11/04/2022 9:12 AM [phone]: Please page me ([phone]) or perfect serve me for patient care issues. [phone]: Please page [facility] night Hospitalist for any issues. Subjective: Admit Date: 10/31/2022 PCP: Cole Hopkins MD Room#: B2-250/B2250 B Interval History: Sleeping, woke up No new complaints. Afebrile overnight. Admitting Synopsis: Assessment : Fall and inability to sheba herself up. Mild rhabdomyolysis Debility and weakness. OA knees Difficulty to ambulate Hypokalemia HTN MDM 11/01: Admitted with fall , on the floor of the kitchen overnight. Was able to walk to the restroom this morning. Says she drags her right leg which is new to her. We will get MRI of the brain. CK little bit elevated but stable. Supplement potassium. 11/02: MRI without any acute findings. No new focal neurological deficit or weakness. No new complaints. PT OT suggesting SNF on discharge , discussed about choosing a place. Continue with PT OT. 11/03. Feels better. Knee abrasions better. DC IV fluid. Continue with PT OT. Discharge when placement ready. Blood pressure slightly on the higher side, will monitor for now. If persistently elevated, will start an antihypertensive. 11/04: Waiting for placement. No new complaints. Objective: Vitals: BP (!) 148/79 (BP Location: Right arm, Patient Position: Lying) Pulse 72 Temp 36.1 ?C (96.9 ?F) (Temporal) Resp 18 Ht 5' 5 (1.651 m) Wt 245 lb (111 kg) SpO2 94% BMI 40.77 kg/m? Pulse Ox: SpO2 Av.7 % Min: 94 % Max: 96 % Supplemental O2: CONSTITUTIONAL: awake, HEENT: PERRLA NECK: supple, HEART: regular rate and rhythm , s1,s2,+ LUNGS: bilateral equal air entry, clear to auscultation bilaterally, ABDOMEN: soft, non tender, non distended, positive BS, no guarding or rigidity EXTREMITIES: negative for edema, Skin: abrasions on knee- better Adult diet Regular @[id number]@ 24HR INTAKE/OUTPUT: Intake/Output Summary (Last 24 hours) at 11/04/2022 0912 Last data filed at 11/03/2022 2100 Gross per 24 hour Intake 100 ml Output -- Net 100 ml Past Medical History: Past Medical History: Diagnosis Date Diverticulitis GERD (gastroesophageal reflux disease) Sleep apnea Medications: enoxaparin, 30 mg, SubCUTAneous, 2 times per day escitalopram, 20 mg, Oral, Daily influenza, 0.5 mL, IntraMUSCular, Once LABS: CBC: No results for input(s): WBC, RBC, HGB, HCT, MCV, RDW, PLT in the last 72 hours. BMP: No results for input(s): NA, K, CL, CO2, BUN, CREATININE, GLUCOSE, CALCIUM, ANIONGAP in the last 72 hours. LIVER PROFILE: No results for input(s): AST, ALT, BILITOT, ALKPHOS, PROT in the last 72 hours. No lab exists for component: LABALBU PT/INR: No results for input(s): PROTIME, INR in the last 72 hours. CARDIAC ENZYMES: No results for input(s): TROPONINI in the last 72 hours. Procalcitonin: No results found for: PROCAL -am labs, replace lytes prn -increase activity -DVT prophylaxis: [x] Lovenox [] Heparin [] SCDs [] Encourage ambulation [] On Anticoagulation [] OAC/NOAC held [] ASA 325 per primary service Advance Directive: Full Code Extended Emergency Contact Information Primary Emergency Contact: Kelsey Benitez Mobile Relation: Other Preferred language: [employer] Operator needed? No Discharge planning: TBD Dav Hagan MD Division of Hospitalist Medicine [facility] 11-03-2022 Note Hospitalist Progress Note 11/03/2022 10:25 AM [phone]: Please page me ([phone]) or perfect serve me for patient care issues. [phone]: Please page [facility] Hospitalist for any issues. Subjective: Admit Date: 10/31/2022 PCP: Cole Hopkins MD Room#: B2-250/B2-250 B Interval History: Feels better. Wants to get out of hospital, waiting for placement. No new complaints. Admitting Synopsis: Assessment : Fall and inability to sheba herself up. Mild rhabdomyolysis Debility and weakness. OA knees Difficulty to ambulate Hypokalemia HTN MDM 11/01: Admitted with fall , on the floor of the kitchen overnight. Was able to walk to the restroom this morning. Says she drags her right leg which is new to her. We will get MRI of the brain. CK little bit elevated but stable. Supplement potassium. 11/02: MRI without any acute findings. No new focal neurological deficit or weakness. No new complaints. PT OT suggesting SNF on discharge , discussed about choosing a place. Continue with PT OT. 11/03. Feels better. Knee abrasions better. DC IV fluid. Continue with PT OT. Discharge when placement ready. Blood pressure slightly on the higher side, will monitor for now. If persistently elevated, will start an antihypertensive. Objective: Vitals: BP (!) 156/98 (BP Location: Left arm, Patient Position: Sitting) Pulse 84 Temp 36.6 ?C (97.8 ?F) (Temporal) Resp 18 Ht 5' 5 (1.651 m) Wt 245 lb (111 kg) SpO2 91% BMI 40.77 kg/m? Pulse Ox: SpO2 Av.7 % Min: 91 % Max: 95 % Supplemental O2: CONSTITUTIONAL: awake, alert, HEENT: Normocephalic, PERRLA NECK: supple, trachea midline , HEART: regular rate and rhythm , s1,s2,+ LUNGS: bilateral equal air entry, clear to auscultation bilaterally, no wheezes, ABDOMEN: soft, non tender, non distended, positive BS, no guarding or rigidity EXTREMITIES: negative for edema, Skin: abrasions on knee- better NEURO: CN 2-12 grossly intact. No gross focal lateralizing signs noted. No nystagmus. Gait examination deferred. Adult diet Regular @[id number]@ 24HR INTAKE/OUTPUT: No intake or output data in the 24 hours ending 11/03/22 1025 Past Medical History: Past Medical History: Diagnosis Date Diverticulitis GERD (gastroesophageal reflux disease) Sleep apnea Medications: enoxaparin, 30 mg, SubCUTAneous, 2 times per day escitalopram, 20 mg, Oral, Daily influenza, 0.5 mL, IntraMUSCular, Once LABS: CBC: Recent Labs 10/31/22 1109 11/01/22 0227 WBC 6.8 6.2 RBC 5.40* 4.76 HGB 15.6 13.5 HCT 47.3* 41.3 MCV 87.5 86.7 RDW 14.2 14.4 PLT 214 203 BMP: Recent Labs 10/31/22 1109 11/01/22 0227 NA 138 137 K 3.6 3.4* CL 103 107 CO2 26 23 BUN 18* 19* CREATININE 0.69 0.66 GLUCOSE 127* 118* CALCIUM 8.8 8.3* ANIONGAP 9 7 LIVER PROFILE: Recent Labs 11/01/22 0227 AST 47* ALT 26 BILITOT 0.3 ALKPHOS 66 PROT 6.9 PT/INR: Recent Labs 10/31/22 1109 PROTIME 10.6 INR 1.0 CARDIAC ENZYMES: No results for input(s): TROPONINI in the last 72 hours. Procalcitonin: No results found for: PROCAL -am labs, replace lytes prn -increase activity -DVT prophylaxis: [x] Lovenox [] Heparin [] SCDs [] Encourage ambulation [] On Anticoagulation [] OAC/NOAC held [] ASA 325 per primary service Advance Directive: Full Code Extended Emergency Contact Information Primary Emergency Contact: Kelsey Benitez Mobile Relation: Other Preferred language: [employer] Operator needed? No Discharge planning: SHREYAS Hagan MD Division of Hospitalist Medicine [facility] 11-02-2022 Note Hospitalist Progress Note 11/02/2022 1:15 PM [phone]: Please page me ([phone]) or perfect serve me for patient care issues. [phone]: Please page [facility] Hospitalist for any issues. Subjective: Admit Date: 10/31/2022 PCP: Cole Hopkins MD Room#: B2-250/B2-250 B Interval History: Seen and examined. Did inform that MRI brain was normal. No new focal weakness. PT/OT suggesting SNF- discussed about choosing a place. Admitting Synopsis: Assessment : Fall and inability to sheba herself up. Mild rhabdomyolysis Debility and weakness. OA knees Difficulty to ambulate hypokalemia [facility] 11/01: Admitted with fall , on the floor of the kitchen overnight. Was able to walk to the restroom this morning. Says she drags her right leg which is new to her. We will get MRI of the brain. CK little bit elevated but stable. Supplement potassium. 11/02: MRI without any acute findings. No new focal neurological deficit or weakness. No new complaints. PT OT suggesting SNF on discharge , discussed about choosing a place. Continue with PT OT. Objective: Vitals: BP (!) 151/70 (BP Location: Left arm, Patient Position: Lying) Pulse 66 Temp 36.5 ?C (97.7 ?F) (Temporal) Resp 18 Ht 5' 5 (1.651 m) Wt 245 lb (111 kg) SpO2 92% BMI 40.77 kg/m? Pulse Ox: SpO2 Av % Min: 92 % Max: 94 % Supplemental O2: CONSTITUTIONAL: awake, alert, cooperative, no apparent distress, and appears stated age HEENT: Normocephalic, PERRLA NECK: supple, trachea midline , HEART: regular rate and rhythm , s1,s2,+ LUNGS: bilateral equal air entry, clear to auscultation bilaterally, no wheezes, ABDOMEN: soft, non tender, non distended, positive BS, no guarding or rigidity EXTREMITIES: negative for edema, Skin: abrasions on knee , healing NEURO: CN 2-12 grossly intact. No gross focal lateralizing signs noted. No nystagmus. Gait examination deferred. Adult diet Regular @[id number]@ 24HR INTAKE/OUTPUT: Intake/Output Summary (Last 24 hours) at 11/02/2022 1315 Last data filed at 11/01/2022 1332 Gross per 24 hour Intake 250 ml Output -- Net 250 ml Past Medical History: Past Medical History: Diagnosis Date Diverticulitis GERD (gastroesophageal reflux disease) Sleep apnea Medications: enoxaparin, 30 mg, SubCUTAneous, 2 times per day escitalopram, 20 mg, Oral, Daily influenza, 0.5 mL, IntraMUSCular, Once LABS: CBC: Recent Labs 10/31/22 1109 11/01/22226 WBC 6.8 6.2 RBC 5.40* 4.76 HGB 15.6 13.5 HCT 47.3* 41.3 MCV 87.5 86.7 RDW 14.2 14.4 PLT 214 203 BMP: Recent Labs 10/31/22 1109 11/01/22226 NA 138 137 K 3.6 3.4* CL 103 107 CO2 26 23 BUN 18* 19* CREATININE 0.69 0.66 GLUCOSE 127* 118* CALCIUM 8.8 8.3* ANIONGAP 9 7 LIVER PROFILE: Recent Labs 11/01/22226 AST 47* ALT 26 BILITOT 0.3 ALKPHOS 66 PROT 6.9 PT/INR: Recent Labs 10/31/22 110 PROTIME 10.6 INR 1.0 CARDIAC ENZYMES: No results for input(s): TROPONINI in the last 72 hours. Procalcitonin: No results found for: PROCAL -am labs, replace lytes prn -increase activity -DVT prophylaxis: [x] Lovenox [] Heparin [] SCDs [] Encourage ambulation [] On Anticoagulation [] OAC/NOAC held [] ASA 325 per primary service Advance Directive: Full Code Extended Emergency Contact Information Primary Emergency Contact: Kelsey Benitez Mobile Relation: Other Preferred language: [employer] Operator needed? No Discharge planning: SHREYAS Hagan MD Division of Hospitalist Medicine [facility] 11-01-2022 Note Hospitalist Progress Note 11/01/2022 11:20 AM [phone]: Please page me ([phone]) or perfect serve me for patient care issues. [phone]: Please page [facility] night Hospitalist for any issues. Subjective: Admit Date: 10/31/2022 PCP: Cole Hopkins MD Room#: B2-250/[facility]250 B Interval History: Denies chest pain, sob, abdominal pain, nausea, vomiting, diarrhea, constipation, fevers, or chills. ROS: 12 point ROS done, negative other than above Admitting Synopsis: Assessment : Fall and inability to sheba herself up. Mild rhabdomyolysis Debility and weakness. OA knees Difficulty to ambulate hypokalemia [facility] 11/01: Admitted with fall , on the floor of the kitchen overnight. Was able to walk to the restroom this morning. Says she drags her right leg which is new to her. We will get MRI of the brain. CK little bit elevated but stable. Supplement potassium. Objective: Vitals: BP 124/71 (BP Location: Left arm, Patient Position: Lying) Pulse 85 Temp 36.4 ?C (97.5 ?F) (Temporal) Resp 18 Ht 5' 5 (1.651 m) Wt 245 lb (111 kg) SpO2 94% BMI 40.77 kg/m? Pulse Ox: SpO2 Av % Min: 94 % Max: 97 % Supplemental O2: CONSTITUTIONAL: awake, alert, cooperative, no apparent distress, and appears stated age HEENT: Normocephalic, PERRLA NECK: supple, trachea midline , HEART: regular rate and rhythm , s1,s2,+ LUNGS: bilateral equal air entry, clear to auscultation bilaterally, no wheezes, crackles, or rhonchi. ABDOMEN: soft, non tender, non distended, positive BS, no guarding or rigidity EXTREMITIES: negative for edema, NEURO: CN 2-12 grossly intact. No gross focal lateralizing signs noted. No nystagmus. Gait examination deferred. NIHSS-0. Adult diet Regular @[id number]@ 24HR INTAKE/OUTPUT: No intake or output data in the 24 hours ending 11/01/22 1120 Past Medical History: Past Medical History: Diagnosis Date Diverticulitis GERD (gastroesophageal reflux disease) Sleep apnea Medications: enoxaparin, 30 mg, SubCUTAneous, 2 times per day escitalopram, 20 mg, Oral, Daily influenza, 0.5 mL, IntraMUSCular, Once potassium chloride, 40 mEq, Oral, Once LABS: CBC: Recent Labs 10/31/22 1109 11/01/22226 WBC 6.8 6.2 RBC 5.40* 4.76 HGB 15.6 13.5 HCT 47.3* 41.3 MCV 87.5 86.7 RDW 14.2 14.4 PLT 214 203 BMP: Recent Labs 10/31/22 1109 11/01/22226 NA 138 137 K 3.6 3.4* CL 103 107 CO2 26 23 BUN 18* 19* CREATININE 0.69 0.66 GLUCOSE 127* 118* CALCIUM 8.8 8.3* ANIONGAP 9 7 LIVER PROFILE: Recent Labs 11/01/22226 AST 47* ALT 26 BILITOT 0.3 ALKPHOS 66 PROT 6.9 PT/INR: Recent Labs 10/31/221108 PROTIME 10.6 INR 1.0 CARDIAC ENZYMES: No results for input(s): TROPONINI in the last 72 hours. Procalcitonin: No results found for: PROCAL -am labs, replace lytes prn -increase activity -DVT prophylaxis: [x] Lovenox [] Heparin [] SCDs [] Encourage ambulation [] On Anticoagulation [] OAC/NOAC held [] ASA 325 per primary service Advance Directive: Full Code Extended Emergency Contact Information Primary Emergency Contact: Kelsey Benitez Mobile Relation: Other Preferred language: [employer] Operator needed? No Discharge planning: TBChris Hagan MD Division of Hospitalist Medicine [facility] 10-31-2022 Note Attending History an d Physical Admit Date: 10/31/2022 PCP: No primary care provider on file. CHIEF COMPLAINT: fall and imbalance Reason for Admission: same History Obtained From: patient HISTORY OF PRESENT ILLNESS: The patient is a 76 y.o. female with significant past medical history below who presents with above complaints. 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 Uses husbands walker to walk around. Fell to kitchen floor yesterday evening, but unable to get up . Was on the floor all night. Called EMS in the morning. Denies any injury to head or LOC. No dizziness , lightheadedness, chest pain, SOB, abdominal pain, nausea or vomiting or palpitations. Past Medical History: Past Medical History: Diagnosis Date Diverticulitis GERD (gastroesophageal reflux disease) Sleep apnea Past Surgical History: Past Surgical History: Procedure Laterality Date CHOLECYSTECTOMY CYST REMOVAL HYSTERECTOMY TONSILLECTOMY (HISTORICAL) Social History: Social Determinants of Health Tobacco Use: Medium Risk Smoking Tobacco Use: Former Smokeless Tobacco Use: Never Passive Exposure: Not on file Alcohol Use: Not At Risk Frequency of Alcohol Consumption: Never Average Number of Drinks: Patient does not drink Frequency of Binge Drinking: Never Financial Resource Strain: Not on file Food Insecurity: Not on file Transportation Needs: Not on file Physical Activity: Not on file Stress: Not on file Social Connections: Not on file Intimate Partner Violence: Not on file Depression: Not on file Housing Stability: Not on file Family History: Family History Problem Relation Name Age of Onset Diabetes Mother Cancer Father Medications Prior to Admission: No current facility-administered medications on file prior to encounter. Current Outpatient Medications on File Prior to Encounter Medication Sig Dispense Refill escitalopram (Lexapro) 20 MG tablet Every 24 hours. acetaminophen (Tylenol 8 Hour Arthritis Pain) 650 MG ER tablet every 8 hours. mirabegron ER (Myrbetriq) 25 MG 24 hr tablet Take 25 mg by mouth daily. naproxen sodium (Anaprox) 110 MG split tablet Take by mouth. Allergies: No Known Allergies REVIEW OF SYSTEMS: 12 point ROS done, negative other than HPI Vitals: BP (!) 137/114 (BP Location: Left arm, Patient Position: Sitting) Pulse 83 Temp 36.8 ?C (98.2 ?F) (Oral) Resp 16 Ht 5' 5 (1.651 m) Wt 245 lb (111 kg) SpO2 95% BMI 40.77 kg/m? Pulse Ox: SpO2 Av.5 % Min: 95 % Max: 96 % Supplemental O2: PHYSICAL EXAM: CONSTITUTIONAL: awake, alert, cooperative, no apparent distress, and appears stated age HEENT: Normocephalic, PERRLA NECK: supple, trachea midline , HEART: regular rate and rhythm , no murmurs, gallops, or rubs LUNGS: bilateral equal air entry, clear to auscultation bilaterally, no wheezes, crackles, or rhonchi. ABDOMEN: soft, non tender, non distended, BS+ EXTREMITIES: negative for edema, +2 pulses bilateral upper and lower extremities SKIN: abrasions both knee and left breast. NEURO: CN 2-12 grossly intact. No gross focal lateralizing signs noted. No nystagmus. Gait examination deferred. DATA: CBC: Recent Labs 10/31/22 1109 WBC 6.8 HGB 15.6 PLT 214 BMP: Recent Labs 10/31/22 1109 NA 138 K 3.6 CL 103 CO2 26 BUN 18* CREATININE 0.69 GLUCOSE 127* MAG: No results for input(s): MG in the last 72 hours. Hepatic: No results for input(s): AST, ALT, BILITOT, ALKPHOS in the last 72 hours. No lab exists for component: ALB Cardiac Injury Profile: Recent Labs 10/31/22 1109 CKTOTAL 353* BNP: No results for input(s): BNP in the last 72 hours. Lipids: No results found for: TRIG, HDL, LDLCALC, CHOL ABGs: No results found for: PHART, PO2ART, [id number] INR: Recent Labs 10/31/22 1109 INR 1.0 D Dimer: No results for input(s): DDIMER in the last 72 hours. HgBA1c: No results found for: HGBA1C TSH: No results found for: TSH Urine Culture: No components found for: CURINE Blood Culture: No components found for: CBLOOD, [id number] Blood Culture from Central Line: No components found for: CBLOODLN Sputum Culture: No components found for: CSPUTUM Significant Diagnostic Studies: EKG: See Report Echo: See Report IMPRESSION: Fall and inability to sheba herself up. Mild rhabdomyolysis Debility and weakness. OA knees Difficulty to ambulate Past Medical History: Diagnosis Date Diverticulitis GERD (gastroesophageal reflux disease) Sleep apnea PLAN: Admit to [facility]. Fall seems to be secondary to imbalance. Uses walker at home, which is her husbands. PT/OT Possible placement if needed. Labs and CK in am. -am labs, replace lytes prn -increase activity --vitals per routine -home meds as ordered -DVT prophylaxis: [x] Lovenox [] Heparin [] SCDs [] Encourage ambulation [] On Anticoagulation [] OAC/NOAC held [] ASA 325 per prima (more content not included)... [facility] Di[facility], unspecified- Primary [facility] Summary Purpose Family History No Family History Records FoundNo Family History Records Found Advance Directives No Advanced Directives Records FoundLatest Code Status on File Code Status Date Activated Date Inactivated Comments Full Code 01/07/2023 1:52 PM 01/09/2023 5:04 PM Code Status History Code Status Date Activated Date Inactivated Comments Full Code 10/31/2022 3:56 PM 11/12/2022 8:05 PM Additional Source Comments INFORMATION SOURCE (unrecogn ized section and content) DATE CREATED AUTHOR AUTHOR'S ORGANIZ ATION 05/07/2023 [facility] Reason for Visit (unrecogniz ed section and content) Specialty Diagnoses / Procedures Referred By Contac t Referred To Contact Diagnoses UTI (urinary tract infection) Acute cystitis with hematuria Procedures . Mariza Paz MD [address] [address] [facility] Emergency Dept [address] [place] [address] Referral ID Status Reason Start Date Expiration Date Visits Re quested Visits Authorized [id number] 1 1 Scheduled Active and Recently Administ ered Medications (unrecognized section and content) Continuous Medication Order 01/07/2023 01/08/2023 01/09/2023 sodium chloride 0.9 % infusion 75 mL/hr, IntraVENous, Continuous, Starting on 01/07/23 at 1355 [id number] (New Bag - Provider: Acacia Greer RN)[id number] (New Bag - Provider: Juany De Paz RN)[id number] (Rate/Dose Verify - Provider: Jade Emmanuel LPN) 0600 (New Bag - Provider: Jade Emmanuel LPN)2102 (New Bag - Provider: Jade Emmanuel LPN) 1101 (New Bag - Provider: Sheeba Rodriguez RN) PRN Medication Order 01/07/2023 01/08/2023 01/09/2023 acetaminophen (Tylenol) suppository 650 mg(Linked Group 1) 650 mg, Rectal, Every 6 hours PRN, mild pain (1-3), fever, For temp greater than 100.4 F (38 C), Starting on Sat01/07/23 at 1349, Administer if oral route cannot be used. Maximum dose of acetaminophen is 4000 mg from all sources in 24 hours. acetaminophen (Tylenol) tablet 650 mg 650 mg, Oral, Every 6 hours PRN, mild pain (1-3), fever, Starting on Sat01/07/23 at 1347 acetaminophen (Tylenol) tablet 650 mg(Linked Group 1) 650 mg, Oral, Every 6 hours PRN, mild pain (1-3), fever, For temp greater than 100.4 F (38 C), Starting on Sat01/07/23 at 1349, Maximum dose of acetaminophen is 4000 mg from all sources in 24 hours. ondansetron (Zofran) injection 4 mg(Linked Group 2) 4 mg, IntraVENous, Every 6 hours PRN, nausea, vomiting, Starting on Sat01/07/23 at 1349, 1st Line. Give IV if patient is unable to take orally. If inadequate response within 60 minutes, proceed to next-line agent or contact provider if no further options ordered. ondansetron ODT (Zofran-ODT) disintegrating tablet 4 mg(Linked Group 2) 4 mg, Oral, Every 8 hours PRN, nausea, vomiting, Starting on Sat01/07/23 at 1349, 1st Line. If inadequate response within 60 minutes, proceed to next-line agent or contact provider if no further options ordered. Patient should allow tablet to dissolve on tongue. Do not remove from blister pack until just before administering. polyethylene glycol (PEG) 3350 (Miralax) packet 17 g 17 g, Oral, Daily PRN, constipation, Starting on Sat01/07/23 at 1349, 1st line for treatment of constipation - give scheduled if no bowel movement in past 24 hours. Linked Groups Order Group 1: acetaminophen (Tylenol) tablet 650 mgJump to med 650 mg, Oral, Every 6 hours PRN, mild pain (1-3), fever, For temp greater than 100.4 F (38 C), Starting on Sat01/07/23 at 1349
Maximum dose of acetaminophen is 4000 mg from all sources in 24 hours.
Or acetaminophen (Tylenol) suppository 650 mgJump to med 650 mg, Rectal, Every 6 hours PRN, mild pain (1-3), fever, For temp greater than 100.4 F (38 C), Starting on Sat01/07/23 at 1349
Administer if oral route cannot be used. Maximum dose of acetaminophen is 4000 mg from all sources in 24 hours.
Group 2: ondansetron ODT (Zofran-ODT) disintegrating tablet 4 mgJump to med 4 mg, Oral, Every 8 hours PRN, nausea, vomiting, Starting on Sat01/07/23 at 1349
1st Line. If inadequate response within 60 minutes, proceed to next-line agent or contact provider if no further options ordered. Patient should allow tablet to dissolve on tongue. Do not remove from blister pack until just before administering.
Or ondansetron (Zofran) injection 4 mgJump to med 4 mg, IntraVENous, Every 6 hours PRN, nausea, vomiting, Starting on Sat01/07/23 at 1349
1st Line. Give IV if patient is unable to take orally. If inadequate response within 60 minutes, proceed to next-line agent or contact provider if no further options ordered.
Care Teams (unrecognized sec tion and content) Gang Leader Relationship Specialty Start Date End Date Cole Hopkins MD [address] [place] [phone] PCP - General Family Medicine 10/31/22 Gang Leader Relationship Specialty Start Date End Date Cole Hopkins MD [address] [place] [phone] PCP - General Family Medicine 10/31/22 FOR RECORDS PERTAINING TO PATIENTS WHO ARE OR HAVE BEEN ENROLLED IN A CHEMICAL DEPENDENCY/SUBSTANCEABUSE PROGRAM, SOME INFORMATION MAY BE OMITTED. This clinical summary was aggregated from multiple sources. Caution should be exercised in using it in the provision of clinical care. This summary normalizes information from multiple sources, and as a consequence, information in this document may materially change the coding, format and clinical context of patient data. In addition, data may be omitted in some cases. CLINICAL DECISIONS SHOULD BE BASED ON THE PRIMARY CLINICAL RECORDS. [employer] [email or web address] provides no warranty or guarantee of the accuracy or completeness of information in this document.
[2023-11-12 09:42] LABS: Hematocrit 39.3 % (37-47); Hemoglobin 12.7 g/dL (12.0-15.0); Mean Corp Hgb Conc 32.3 g/dL (32-36); Mean Corpuscular Hgb 28.7 pg (27.0-32.0); Mean Corpuscular Volume 88.7 fL (81-99); Platelet Count 245 K/mm3 (150-450); RBC Distribution Width CV 13.7 % (11.6-14.6); RBC Distribution Width SD 44.8 fl (35.1-43.9); Red Blood Count 4.43 M/mm3 (4.2-5.4); White Blood Count 7.9 K/mm3 (4.4-11.0)
[2023-11-12 10:12] LABS: Anion Gap 2 (5-15); BUN 12 mg/dL (7-18); BUN/Creat Ratio 17.6 RATIO (10-20); Calcium,Total 9.2 mg/dL (8.5-10.1); Chloride 111 mmol/L (98-107); Creatinine, Serum 0.68 mg/dL (0.55-1.02); EST Glomerular Filtration Rate 89 mL/min (>60); Est Glom Filt Rate - Afr Amer 108 mL/min (>60); Glucose 110 mg/dL (74-106); Potassium 3.8 mmol/L (3.5-5.1); Sodium Level 142 mmol/L (136-145)
== END ==
LOC: OLS.SANC 05:00
PROVIDERS: Visit Provider Internal Medicine
DX: I10 Essential (primary) hypertension (principal); K57.92 Diverticulitis of intestine, part unspecified, without perforation or abscess without bleeding
CPT/HCPCS: 36415; 80048; 85027

== ENCOUNTER → 2024-01-14 | Outpatient (REF) | payer MEDICARE, MEDICAID, SELFPAY ==
[2024-01-14 08:27] LABS: Hematocrit 39.2 % (37-47); Hemoglobin 12.7 g/dL (12.0-15.0); Mean Corp Hgb Conc 32.4 g/dL (32-36); Mean Corpuscular Hgb 28.6 pg (27.0-32.0); Mean Corpuscular Volume 88.3 fL (81-99); Mean Platelet Vol. 11.1 fl (6.2-12.0); Platelet Count 236 K/mm3 (150-450); RBC Distribution Width CV 13.8 % (11.6-14.6); RBC Distribution Width SD 44.6 fl (35.1-43.9); Red Blood Count 4.44 M/mm3 (4.2-5.4); White Blood Count 7.6 K/mm3 (4.4-11.0)
[2024-01-14 08:33] LABS: Anion Gap 5 (5-15); BUN 17 mg/dL (7-18); Calcium,Total 8.7 mg/dL (8.5-10.1); Chloride 109 mmol/L (98-107); Creatinine, Serum 0.65 mg/dL (0.55-1.02); EST Glomerular Filtration Rate 94 mL/min (>60); Est Glom Filt Rate - Afr Amer 113 mL/min (>60); Glucose 98 mg/dL (74-106); Potassium 3.7 mmol/L (3.5-5.1); Sodium Level 141 mmol/L (136-145)
== END ==
LOC: OLS.SANC 05:00
PROVIDERS: Visit Provider Internal Medicine
DX: I10 Essential (primary) hypertension (principal)
CPT/HCPCS: 36415; 80048; 85027

== ENCOUNTER → 2024-01-21 | Outpatient (REF) | payer MEDICARE, MEDICAID, SELFPAY ==
[2024-01-21 08:02] LABS: Mucous, Urine 0 SEEN /hpf (<or=2+); Red Blood Cells-Urine 0 SEEN /hpf (0-5)
[2024-01-21 08:22] LABS: Color, Urine Yellow (Yellow); Glucose, Dipstick Normal (Normal); Ketone-Dipstick Negative (Negative); Leukocyte Esterase-Dipstick 500 /ul (Negative); Nitrite-Dipstick Negative (Negative); Occult Blood-Urine 10 /ul (Negative); Protein-Dipstick Negative (Negative); Specific Gravity, Urine 1.015 (1.002-1.030); Urine Bilirubin Dipstick Negative (Negative); Urine Clarity Sl. Cloudy (Clear); Urine Urobilinogen Normal (Normal)
[2024-01-21 08:32] LABS: Bacteria 3+ /hpf (None Seen); Squamous Epithelial Cells - UA 0-5 SEEN /hpf (5-10); White Blood Cells 50-100 SEEN /hpf (0-5)
== END ==
LOC: OLS.SANC 05:00
PROVIDERS: Visit Provider Internal Medicine
DX: N39.0 Urinary tract infection, site not specified (principal); I10 Essential (primary) hypertension
CPT/HCPCS: 81001; 87077; 87086; 87088; 87186

== ENCOUNTER → 2024-02-09 | Outpatient (REF) | payer MEDICARE, MEDICAID, SELFPAY ==
[2024-02-10 10:30] LABS: Bacteria 0 SEEN /hpf (None Seen); Mucous, Urine 0 SEEN /hpf (<or=2+); Red Blood Cells-Urine 0 SEEN /hpf (0-5); Squamous Epithelial Cells - UA 0 SEEN /hpf (5-10)
[2024-02-10 10:47] LABS: Color, Urine Yellow (Yellow); Glucose, Dipstick Normal (Normal); Ketone-Dipstick 5 mg/dl (Negative); Leukocyte Esterase-Dipstick 500 /ul (Negative); Nitrite-Dipstick Negative (Negative); Occult Blood-Urine 150 /ul (Negative); Protein-Dipstick 100 mg/dl (Negative); Urine Clarity Cloudy (Clear); Urine Urobilinogen 1 mg/dl (Normal)
[2024-02-10 11:05] LABS: Urine Bilirubin Dipstick 1 mg/dL (Negative)
[2024-02-10 11:12] LABS: White Blood Cells >100 SEEN /hpf (0-5)
== END ==
LOC: OLS.SANC 10:29
PROVIDERS: Visit Provider Internal Medicine
DX: I10 Essential (primary) hypertension (principal); R39.89 Other symptoms and signs involving the genitourinary system
CPT/HCPCS: 81001; 87077; 87086; 87088

== ENCOUNTER → 2024-04-14 | Outpatient (REF) | payer MEDICARE, MEDICAID, SELFPAY ==
[2024-04-14 09:52] LABS: Hematocrit 40.4 % (37-47); Mean Corp Hgb Conc 32.2 g/dL (32-36); Mean Corpuscular Hgb 28.6 pg (27.0-32.0); Mean Platelet Vol. 11.9 fl (6.2-12.0); Platelet Count 195 K/mm3 (150-450); Red Blood Count 4.54 M/mm3 (4.2-5.4); White Blood Count 8.4 K/mm3 (4.4-11.0)
[2024-04-14 10:01] LABS: Anion Gap 4 (5-15); BUN 15 mg/dL (7-18); BUN/Creat Ratio 23.8 RATIO (10-20); Calcium,Total 8.8 mg/dL (8.5-10.1); Chloride 110 mmol/L (98-107); Creatinine, Serum 0.63 mg/dL (0.55-1.02); EST Glomerular Filtration Rate 97 mL/min (>60); Est Glom Filt Rate - Afr Amer 118 mL/min (>60); Glucose 93 mg/dL (74-106); Potassium 4.2 mmol/L (3.5-5.1); Sodium Level 139 mmol/L (136-145)
== END ==
LOC: OLS.SANC 05:00
PROVIDERS: Referring Provider Internal Medicine; Visit Provider Internal Medicine
DX: I10 Essential (primary) hypertension (principal)
CPT/HCPCS: 36415; 80048; 85027

== ENCOUNTER → 2024-06-03 | Outpatient (REF) | payer MEDICARE, MEDICAID, SELFPAY ==
[2024-06-03 09:47] LABS: Hematocrit 39.7 % (37-47); Hemoglobin 12.4 g/dL (12.0-15.0); Mean Corp Hgb Conc 31.2 g/dL (32-36); Mean Corpuscular Hgb 28.4 pg (27.0-32.0); Mean Corpuscular Volume 90.8 fL (81-99); Mean Platelet Vol. 11.3 fl (6.2-12.0); Platelet Count 219 K/mm3 (150-450); RBC Distribution Width CV 13.9 % (11.6-14.6); RBC Distribution Width SD 46.5 fl (35.1-43.9); Red Blood Count 4.37 M/mm3 (4.2-5.4); White Blood Count 7.3 K/mm3 (4.4-11.0)
[2024-06-03 10:38] LABS: Anion Gap 4 (5-15); BUN 13 mg/dL (7-18); BUN/Creat Ratio 22.8 RATIO (10-20); Calcium,Total 9.3 mg/dL (8.5-10.1); Chloride 110 mmol/L (98-107); Creatinine, Serum 0.57 mg/dL (0.55-1.02); EST Glomerular Filtration Rate 110 mL/min (>60); Est Glom Filt Rate - Afr Amer 133 mL/min (>60); Glucose 99 mg/dL (74-106); Potassium 3.8 mmol/L (3.5-5.1); Sodium Level 141 mmol/L (136-145)
== END ==
LOC: OLS.SANC 05:00
PROVIDERS: Visit Provider Internal Medicine
DX: I10 Essential (primary) hypertension (principal)
CPT/HCPCS: 36415; 80048; 85027

== ENCOUNTER → 2024-09-02 | Outpatient (REF) | payer MEDICARE, MEDICAID, SELFPAY ==
[2024-09-02 08:30] LABS: Hematocrit 39.5 % (37-47); Hemoglobin 12.5 g/dL (12.0-15.0); Mean Corp Hgb Conc 31.6 g/dL (32-36); Mean Corpuscular Hgb 28.2 pg (27.0-32.0); Mean Corpuscular Volume 89.2 fL (81-99); Mean Platelet Vol. 10.8 fl (6.2-12.0); Platelet Count 225 K/mm3 (150-450); RBC Distribution Width CV 13.9 % (11.6-14.6); RBC Distribution Width SD 45.2 fl (35.1-43.9); Red Blood Count 4.43 M/mm3 (4.2-5.4); White Blood Count 8.1 K/mm3 (4.4-11.0)
[2024-09-02 08:53] LABS: Anion Gap 4 (5-15); BUN 14 mg/dL (7-18); BUN/Creat Ratio 19.5 RATIO (10-20); Calcium,Total 9.5 mg/dL (8.5-10.1); Chloride 113 mmol/L (98-107); Creatinine, Serum 0.72 mg/dL (0.55-1.02); EST Glomerular Filtration Rate 84 mL/min (>60); Est Glom Filt Rate - Afr Amer 102 mL/min (>60); Glucose 96 mg/dL (74-106); Sodium Level 143 mmol/L (136-145)
[2024-09-02 11:03] LABS: Hemoglobin A1c 5.4 % (3.8-5.6)
== END ==
LOC: OLS.SANC 05:00
PROVIDERS: Visit Provider Internal Medicine
DX: Z79.899 Other long term (current) drug therapy (principal)
CPT/HCPCS: 36415; 80048; 83036; 85027

== ENCOUNTER → 2025-01-01 | Outpatient (REF) | payer MEDICARE, MEDICAID, SELFPAY ==
[2025-01-01 07:38] LABS: Hematocrit 39.9 % (37-47); Mean Corp Hgb Conc 32.6 g/dL (32-36); Mean Corpuscular Hgb 29.3 pg (27.0-32.0); Mean Corpuscular Volume 89.9 fL (81-99); Mean Platelet Vol. 10.6 fl (6.2-12.0); Platelet Count 245 K/mm3 (150-450); RBC Distribution Width CV 13.6 % (11.6-14.6); RBC Distribution Width SD 45.2 fl (35.1-43.9); Red Blood Count 4.44 M/mm3 (4.2-5.4)
[2025-01-01 07:51] LABS: Anion Gap 9 (5-15); BUN 17 mg/dL (4-19); BUN/Creat Ratio 25.6 RATIO (10-20); Calcium,Total 8.8 mg/dL (7.6-11.0); Carbon Dioxide 24.9 mmol/L (21.0-32.0); Chloride 110 mmol/L (98-108); Creatinine, Serum 0.66 mg/dL (0.70-1.20); EST Glomerular Filtration Rate 90 (>60); Glucose 95 mg/dL (70-99); Potassium 4.4 mmol/L (3.3-5.1); Sodium Level 144 mmol/L (133-145)
== END ==
LOC: OLS.SANC 05:00
PROVIDERS: Visit Provider Internal Medicine
DX: E11.9 Type 2 diabetes mellitus without complications (principal); I10 Essential (primary) hypertension
CPT/HCPCS: 36415; 80048; 85027

== ENCOUNTER → 2025-02-23 03:00 | Outpatient (REF) | payer MEDICARE, MEDICAID, SELFPAY ==
[2025-02-23 07:51] LABS: Bacteria 0 SEEN /hpf (None Seen); Mucous, Urine 0 SEEN /hpf (<or=2+); Red Blood Cells-Urine 0 SEEN /hpf (0-5); Squamous Epithelial Cells - UA 0 SEEN /hpf (5-10)
[2025-02-23 08:08] LABS: Color, Urine Yellow (Yellow); Glucose, Dipstick Normal (Normal); Ketone-Dipstick Negative (Negative); Leukocyte Esterase-Dipstick 500 /ul (Negative); Nitrite-Dipstick Positive (Negative); Occult Blood-Urine 150 /ul (Negative); Protein-Dipstick 100 mg/dl (Negative); Specific Gravity, Urine 1.025 (1.002-1.030); Urine Bilirubin Dipstick Negative (Negative); Urine Clarity Cloudy (Clear); Urine Urobilinogen Normal (Normal)
[2025-02-23 08:54] LABS: White Blood Cells >100 SEEN /hpf (0-5)
== END ==
LOC: OLS.SANC 03:00
PROVIDERS: Visit Provider Internal Medicine
DX: N39.0 Urinary tract infection, site not specified (principal)
CPT/HCPCS: 81001; 87077; 87086; 87088; 87186

== ENCOUNTER → 2025-03-30 | Outpatient (REF) | payer MEDICARE, MEDICAID, SELFPAY ==
[2025-03-30 07:49] LABS: Hematocrit 39.9 % (37-47); Hemoglobin 13.3 g/dL (12.0-15.0); Mean Corp Hgb Conc 33.3 g/dL (32-36); Mean Corpuscular Volume 88.3 fL (81-99); Mean Platelet Vol. 11.0 fl (6.2-12.0); Platelet Count 235 K/mm3 (150-450); RBC Distribution Width CV 13.7 % (11.6-14.6); RBC Distribution Width SD 43.9 fl (35.1-43.9); Red Blood Count 4.52 M/mm3 (4.2-5.4); White Blood Count 10.5 K/mm3 (4.4-11.0)
[2025-03-30 09:18] LABS: Anion Gap 11 (5-15); BUN 17 mg/dL (4-19); BUN/Creat Ratio 25.9 RATIO (10-20); Calcium,Total 9.2 mg/dL (7.6-11.0); Carbon Dioxide 23.5 mmol/L (21.0-32.0); Chloride 108 mmol/L (98-108); Glucose 89 mg/dL (70-99); Potassium 3.9 mmol/L (3.3-5.1)
== END ==
LOC: OLS.SANC 05:00
PROVIDERS: Visit Provider Internal Medicine
DX: I10 Essential (primary) hypertension (principal)
CPT/HCPCS: 36415; 80048; 85027

== ENCOUNTER → 2025-05-07 | Outpatient (REF) | payer MEDICARE, MEDICAID, SELFPAY ==
[2025-05-07 09:17] LABS: Hematocrit 42.1 % (37-47); Hemoglobin 13.6 g/dL (12.0-15.0); Mean Corp Hgb Conc 32.3 g/dL (32-36); Mean Corpuscular Volume 89.6 fL (81-99); Mean Platelet Vol. 11.5 fl (6.2-12.0); Platelet Count 195 K/mm3 (150-450); RBC Distribution Width CV 13.7 % (11.6-14.6); RBC Distribution Width SD 44.7 fl (35.1-43.9); Red Blood Count 4.70 M/mm3 (4.2-5.4); White Blood Count 6.9 K/mm3 (4.4-11.0)
[2025-05-07 09:40] LABS: Anion Gap 10 (5-15); BUN 14 mg/dL (4-19); BUN/Creat Ratio 23.8 RATIO (10-20); Calcium,Total 8.9 mg/dL (7.6-11.0); Carbon Dioxide 23.5 mmol/L (21.0-32.0); Chloride 109 mmol/L (98-108); Glucose 90 mg/dL (70-99); Potassium 3.7 mmol/L (3.3-5.1)
== END ==
LOC: OLS.SANC 05:00
PROVIDERS: Visit Provider Internal Medicine
DX: I10 Essential (primary) hypertension (principal); E11.9 Type 2 diabetes mellitus without complications
CPT/HCPCS: 36415; 80048; 85027

== ENCOUNTER → 2025-08-02 | Outpatient (REF) | payer MEDICARE, MEDICAID, SELFPAY ==
[2025-08-02 07:42] LABS: Hematocrit 39.4 % (37-47); Hemoglobin 12.7 g/dL (12.0-15.0); Mean Corp Hgb Conc 32.2 g/dL (32-36); Mean Corpuscular Volume 88.7 fL (81-99); Mean Platelet Vol. 10.8 fl (6.2-12.0); Platelet Count 210 K/mm3 (150-450); RBC Distribution Width CV 14.3 % (11.6-14.6); RBC Distribution Width SD 46.4 fl (35.1-43.9); Red Blood Count 4.44 M/mm3 (4.2-5.4); White Blood Count 7.5 K/mm3 (4.4-11.0)
[2025-08-02 07:59] LABS: AST(SGOT) 20 U/L (<=31); Alanine Aminotransfer ALT/SGPT 10 U/L (<=34); Albumin, Serum 3.3 g/dL (3.4-4.8); Alkaline Phosphatase 65 U/L (35-104); Anion Gap 9 (5-15); BUN 13 mg/dL (4-19); BUN/Creat Ratio 20.7 RATIO (10-20); Calcium,Total 9.0 mg/dL (7.6-11.0); Carbon Dioxide 23.4 mmol/L (21.0-32.0); Chloride 109 mmol/L (98-108); Globulin 2.6 g/dL (2.2-4.2); Glucose 97 mg/dL (70-99); Potassium 4.1 mmol/L (3.3-5.1)
== END ==
LOC: OLS.SANC 05:00
PROVIDERS: Visit Provider Internal Medicine
DX: I10 Essential (primary) hypertension (principal); R53.83 Other fatigue
CPT/HCPCS: 36415; 80053; 85027